=== PATIENT | male | born 1945 | race Caucasian/White ===

== ENCOUNTER 2019-02-20 10:26 | Inpatient (IN) | payer MEDICARE ==
[~2019-02-20 10:26] MED LIST: Buffered Lidocaine 1% SYRIN* 1 ML/SYRINGE INTRADERM ONE; Famotidine IV* 10 MG/ML 2 ML (20 mg) IV ONE; Famotidine IV* 10 MG/ML 2 ML (20 mg) ONE; Lactated Ringers 1000 ML Bag* 1,000 ML IV SCH; Lidocaine 1% MPF ** 5 ML VIAL ONE; ROPIVACAINE 5 MG/ML 30 ML BTL (0.5%) ONE; Tranexamic Acid 1,000 MG in NS 0.9% 50 ML* (outpatient use) IV SCH; ceFAZolin 2 GM PREMIX in ORs 2 GM/50 ML BAG ONE
--- OUTSIDE RECORDS SUMMARY | 2019-02-20 10:31 | XMS REPORT | Continuity of Care Document ---
:1945 External Reference #:[id number] Author Name Tootie Haynes, [facility] Address [address] [place] [address] Problems Active Problems Provider Date Disorder of bursa of shoulder region Onset: 09/06/2000 Cervical spondylosis without myelopathy Onset: 09/06/2000 Obstructive sleep apnea syndrome Louie Jones MD Onset: 02/06/2011 Social History Type Date Description Comments Sex Unknown Tobacco Use Start: Unknown Never Smoked Cigarettes Tobacco Use Start: Unknown Never Smoked Cigars Tobacco Use Start: Unknown Never Smoked A Pipe Smokeless Tobacco Never Used Smokeless Tobacco ETOH Use Denies alcohol use Allergies, Adverse Reactions, Alerts Description No Known Drug Allergies Medications Active Medications SIG Qnty Indications Ordering Provider Date Gabapentin 1 by mouth 90caps M25.511 Guera Castro, 09/15/2016 300mg Capsules three times a M.D. day Lisinopril/Hydrochloro 1 Tab PO bid Unknown thiazide 20-12.5 Tablets Metformin HCL ER 1 Tab PO Q Day Unknown 500mg Tablets ER 24HR Amlodipine Besylate 1 po qd Unknown 5mg Tablets Atorvastatin Calcium Unknown 10mg Tablets Aspirin 81 Low Dose Unknown 81mg Chewtabs Ozempic (0.25 Or 0.5 0.5 mg sq once Unknown MG/Dose) a week 2mg/1.5ML Solution Pen-Inject Medications Administered in Office Medication SIG Qnty Indications Ordering Provider Date Supartz/Hyalgan, Per Dose Yelitza Rock [facility] 02/21/2008 (Not Synvisc) Injection Supartz/Hyalgan, Per Dose John Lombardo M.D. 02/14/2008 (Not Synvisc) Injection Supartz/Hyalgan, Per Dose Yelitza Rogers Jasonyuebrandon, [facility] 02/07/2008 (Not Synvisc) Injection Supartz/Hyalgan, Per Dose Yelitza Rogers Pranav, [facility] 01/29/2008 (Not Synvisc) Injection Supartz/Hyalgan, Per Dose Lilibeth Avendano M.D. 01/22/2008 (Not Synvisc) Injection Immunizations Description No Information Available Vital Signs Date Vital Result Comment 02/07/2019 1:06pm Weight 246.25 lb Weight 111.699 kg BMI (Body Mass Index) 40.4 kg/m2 BP Systolic 132 mmHg BP Diastolic 68 mmHg Heart Rate 116 /min Height 65.50 inches 5'5.50" Height in cm's 166.4 cm O2 % BldC Oximetry 98 % 03/06/2018 10:28am Weight 278.25 lb Weight 126.214 kg BMI (Body Mass Index) 45.6 kg/m2 BP Systolic 120 mmHg BP Diastolic 60 mmHg Heart Rate 100 /min Respiratory Rate 12 /min Height 65.50 inches 5'5.50" Height in cm's 166.4 cm O2 % BldC Oximetry 94 % Results Description No Information Available Procedures Description No Information Available Medical Devices Description No Information Available Encounters Type Date Location Provider Dx Diagnosis Office Visit 02/07/2019 [facility] Tootie Haynes, G47.33 Obstructive sleep 1:00p & Sleep [facility] 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
--- OUTSIDE RECORDS SUMMARY | 2019-02-20 10:31 | XMS REPORT | Continuity of Care Document ---
:1945 External Reference #:[id number] Author Name Sarah Mohamud M.D. 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 Onset: 01/20/2019 Social History Type Date Description Comments Sex Unknown ETOH Use Denies alcohol use Tobacco Use Start: Unknown Patient has never smoked Smoking Status Reviewed: 01/20/19 Patient has never smoked Exercise Type/Frequency Does not exercise Allergies, Adverse Reactions, Alerts Description No Known Drug Allergies Medications Active Medications SIG Qnty Indications Ordering Provider Date Atorvastatin Calcium Farzaneh Daniel MD 20mg Tablets Lisinopril-Hydrochlorothiazid Farzaneh Daniel MD e 20-25mg Tablets Amlodipine Besylate Farzaneh Daniel MD 5mg Tablets Ozempic Farzaneh Daniel MD 0.25or 0.5 mg/Dose Solution Pen-Inject Metformin HCL ER Farzaneh Daniel MD 500mg Tablets ER 24HR Immunizations Description No Information Available Vital Signs Date Vital Result Comment 01/20/2019 3:44pm Height 66 inches 5'6" Weight 246.00 lb Heart Rate 130 /min BP Systolic 130 mmHg BP Diastolic 68 mmHg Body Temperature 98.9 F Pain Level 9 BMI (Body Mass Index) 39.7 kg/m2 Results Description No Information Available Procedures Description No Information Available Medical Devices Description No Information Available Encounters Description No Information Available Assessments Date Code Description Provider 01/20/2019 M25.561 Pain in right knee Sarah Mohamud M.D. 01/20/2019 M25.562 Pain in left knee Sarah Mohamud M.D. 01/20/2019 M25.462 Effusion, left knee Sarah Mohamud M.D. 01/20/2019 M25.461 Effusion, right knee Sarah Mohamud M.D. 01/20/2019 M17.0 Bilateral primary osteoarthritis of knee Sarah Mohamud M.D. Plan of Treatment Future Appointment(s):02/10/2019 11:15 [facility] Sarah Mohamud M.D.M25.561 Pain in right kneeNew Xrays:Knees Bilateral, Ordered: 01/20/19Follow up:Follow up: 7-10 days before ofziuonY40.562 Pain in left kneeNew Xrays:Knees Bilateral, Ordered: M25.462 Effusion, left kneeM25.461 Effusion, right kneeM17.0 Bilateral primary osteoarthritis of knee Functional Status Description No Information Available Mental Status Description No Information Available Referrals Description No Information Available
--- OUTSIDE RECORDS SUMMARY | 2019-02-20 10:31 | XMS REPORT | Continuity of Care Document ---
:1945 External Reference #:[id number] Author Name Sarah Mohamud M.D. 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 Onset: 01/20/2019 Social History Type Date Description Comments Sex Unknown ETOH Use Denies alcohol use Tobacco Use Start: Unknown Patient has never smoked Smoking Status Reviewed: 02/10/19 Patient has never smoked Exercise Type/Frequency Does [...] Available Vital Signs Date Vital Result Comment 02/10/2019 11:55am Height 66 inches 5'6" Weight 243.00 lb Heart Rate 128 /min BP Systolic 138 mmHg BP Diastolic 84 mmHg Body Temperature 99.0 F Pain Level 6 BMI (Body Mass Index) 39.2 kg/m2 01/20/2019 3:44pm Height 66 inches 5'6" Weight 246.00 lb Heart Rate 130 /min BP Systolic 130 mmHg BP Diastolic 68 mmHg Body Temperature 98.9 F Pain Level 9 BMI (Body Mass Index) 39.7 kg/m2 Results Description No Information Available Procedures Description No Information Available Medical Devices Description No Information Available Encounters Type Date Location Provider Dx Diagnosis Office Visit 01/20/2019 [facility] Sarah Mohamud, M25.561 Pain in right 3:00p at [place] M.DGerardo knee M25.562 Pain in left knee M25.462 Effusion, left knee M25.461 Effusion, right knee M17.0 Bilateral primary osteoarthritis of knee Assessments Date Code Description Provider 01/20/2019 M25.561 Pain in right knee Sarah Mohamud M.D. 01/20/2019 M25.562 Pain in left knee Sarah Mohamud M.D. 01/20/2019 M25.462 Effusion, left knee Sarah Mohamud M.D. 01/20/2019 M25.461 Effusion, right knee Sarah Mohamud M.D. 01/20/2019 M17.0 Bilateral primary osteoarthritis of knee Sarah Mohamud M.D. Plan of Treatment Future Appointment(s):03/03/2019 3:30 pm - Sarah Mohamud M.D. at [facility]02/20/2019 11:30 am - Wilbur Munoz PA-C at [facility]02/20/2019 11:30 am - VINI Monzon at [facility]02/20/2019 11:30 am - Sarah Mohamud M.D. at [facility] Functional Status Description No Information Available Mental Status Description No Information Available Referrals Description No Information Available
--- OUTSIDE RECORDS SUMMARY | 2019-02-20 10:31 | XMS REPORT | Continuity of Care Document ---
:1945 External Reference #:[id number] Author Name Farzaneh Daniel MD Address [address] [place] [address] Problems Active Problems Provider Date Type 2 diabetes mellitus Onset: 11/06/2007 Pure hypercholesterolemia Onset: 11/06/2007 Mixed hyperlipidemia Farzaneh Daniel MD Onset: 05/18/2010 Benign essential hypertension Farzaneh Daniel MD Onset: 05/18/2010 Obstructive sleep apnea syndrome Farzaneh Daniel MD Onset: 03/17/2013 Essential hypertension Farzaneh Daniel MD Onset: 04/27/2015 Social History Type Date Description Comments Sex Unknown Tobacco Use Start: Unknown Never Smoked Cigarettes ETOH Use Denies alcohol use Tobacco Use Start: Unknown Patient has never smoked Smoking Status Reviewed: 01/17/19 Patient has never smoked Allergies, Adverse Reactions, Alerts Description No Known Drug Allergies Medications Active Medications SIG Qnty Indications Ordering Date Provider Atorvastatin Calcium 1 by mouth every 30tabs E78.2 Farzaneh Daniel 2018 day MD [place] 20mg Tablets Ozempic 0.5 sc every week 1.500ml E11.9 Farzaneh Daniel 08/20/2018 0.25or 0.Jossy Chakraborty MD mg/Dose Solution Pen-Inject Lisinopril-Hydrochlor 1/2 by mouth 90tabs I10 María Farzaneh 08/20/2018 othiazide every day MD [facility] 20-25mg Tablets Amlodipine Besylate 1 by mouth every 90tabs I10 Farzaneh Daniel 2018 5mg day MD [place] Tablets Fluticasone 2p bilat nares 9.900ml H68.002 María Farzaneh 04/30/2018 Propionate Nasal every day-norma Chakraborty MD [place] sample 50mcg/Act Suspension Shingrix 2 shot series 2units Farzaneh Daniel 12/18/2017 50mcg MD [facility] Suspension Rec Duloxetine HCL 1 by mouth twice 60caps M17.0 [facility] 11/06/2017 60mg a day MD Maury Chakraborty DR Aspirin Enteric 1 by mouth every E78.2 [facility] 03/06/2017 Coated Adult Low day MD [facility] Strength 81mg Tablets DR Knee Sleeve/Open large dx: bilat 2units M17.0 [facility] 12/14/2015 Patella/Medium/Neopre OA MD Palmer ne Misc Coenzyme Q-10 2 by mouth every E78.2 [facility] 10/22/2015 100mg day MD [facility] Capsules Freestyle Lite Test for fsbg's bid 1Box E11.9 [facility] 03/05/2012 Strips MD Palmer Lancets for fsbg's 1Box E11.9 [facility] 03/05/2012 MD [facility] Vitamin D3 1 po qd E55.9 [facility] 10/08/2009 2000Unit MD Palmer Capsules Cpap heated pressure G47.33 [facility] 07/31/2007 10CM MD Palmer dx: beth Metformin HCL ER take two tablets 360tabs E11.9 [facility] 2006 500mg by mouth ghanshyam Chakraborty MD Tablets ER 24HR History Medications Duloxetine HCL 1 by mouth every 7caps [facility] 08/23/2018 - 30mg day x 1 week MD Palmer 10/04/2018 Maury Rosado Medications Administered in Office Medication SIG Qnty Indications Ordering Provider Date Depo Medrol 80 MG Farzaneh Daniel MD 01/04/2016 Injection Immunizations CPT Code Status Date Vaccine Lot # [id number] Given 02/19/2018 Influenza Vac, Quadrivalent, Split, 0.5mL Dosage, [id number] Im Use 22709 Given 03/06/2017 Influenza Vac, Quadrivalent, Split, 0.5mL Dosage, [id number] Im Use 68562 Given 03/06/2016 Influenza Vac, Quadrivalent, Split, 0.5mL Dosage, [id number] Im Use 77218 Given 01/04/2016 Tdap (Adacel) Ages 7 And Above Only [id number] 23769 Given 04/27/2015 Influenza Vac, Quadrivalent, Split, 0.5mL Dosage, [id number] Im Use 97878 Given 08/04/2014 Prevnar 13 Pneumococal Conjugate Vaccine [id number] Q2038 Given 03/16/2014 Fluzone Trivalent Immunization [id number] Q2038 Given 03/17/2013 Fluzone Trivalent Immunization [id number] Given 06/12/2012 Pneumococcal 23 Immunization Adult Or [id number] Immunosuppressed Patient Vital Signs Date Vital Result Comment 01/17/2019 10:18am Weight 245.00 lb Heart Rate 120 /min BP Systolic 134 mmHg BP Diastolic 80 mmHg Height 66.5 inches 5'6.50" BMI (Body Mass Index) 38.9 kg/m2 11/04/2018 8:45am Weight 248.00 lb Heart Rate 96 /min BP Systolic 120 mmHg BP Diastolic 66 mmHg Height 66.5 inches 5'6.50" BMI (Body Mass Index) 39.4 kg/m2 Results Test Date Facility Test Result H/L Range Note Laboratory test 01/17/2019 [facility] Hemoglobin A1c <pending> finding Laboratory test 01/17/2019 [facility] Vit D 25Oh <pending> finding Basic (BMP) 11/04/2018 [facility] Sodium 139 mmol/L 135-146 1, 2 Potassium 4.1 mmol/L 3.5-5.2 Chloride# 96 mmol/L Low 97-110 3 Carbon Dioxide 31 mmol/L 24-34 Glucose 129 mg/dL High 70-105 BUN 17 mg/dL 6-26 Creatinine 1.1 mg/dL 0.5-1.4 Calcium 9.9 mg/dL 8.5-10.5 4 Female Egfr 51 Low >60 5 Male Egfr 68 >60 6 Anion Gap 12 mmol/L 5-15 7 CBC with Auto Diff-fcmg 11/04/2018 [facility] WBC 7.7 K/uL 4.1-11.0 RBC 4.77 M/uL 4.60-6.10 Hemoglobin 15.2 gm/dL 13.5-18.0 Hematocrit 45.7 % 41.0-53.0 MCV 95.8 fL 80.0-97.0 MCH 31.9 pg 27.0-32.0 MCHC 33.3 g/dL 32.0-36.0 RDW 14.4 % 11.5-14.5 PLT Count 313 K/ul 140-400 MPV 8.4 FL 7.1-10.7 Neutrophil 60.4 % 35.0-75.0 Lymphocyte 24.9 % 16.0-52.0 Monocyte 10.6 % High 2.0-10.0 Eosinophil 3.3 % 0.0-5.0 Basophil 0.8 % 0.0-4.0 Abs Neutrophils 4.7 K/uL 2.1-8.0 Abs Lymphocytes 1.9 K/uL 0.8-5.5 Abs Monocytes 0.8 K/uL 0.1-1.0 Abs Eosinophils 0.3 K/uL 0.0-0.5 Abs Basophils 0.1 K/uL 0.0-0.3 [facility] 6.8 % High 4.1-5.9 Estimated Average Glucose Calc 148 mg/dL High 71-140 Laboratory test finding 11/04/2018 [facility] TSH 3.04 uIU/mL 0.35-4.94 CMB Reflex 10/04/2018 [facility] CKMB 2.8 ng/mL (0.0-5.0) [phone] CKMB Relative Index 1.6 {index_val} (0.0-4.0) CKMB Panel-RL 10/04/2018 [facility] CK 174 U/L (39-308) 8 Lipid Treatment 10/04/2018 [facility] Cholesterol 200 mg/dL High 50-199 9 Triglycerides 146 mg/dL 30-200 HDL 45 mg/dL 29-71 10 Chol/ HDL Ratio 4.5 ratio 4.0-6.7 VLDL 29 mg/dL 2-29 LDL (Calc) 126 mg/dL High 20-99 11 Alt 49 U/L High 3-42 Ast 42 U/L 8-42 Hemoglobin A1c 10/04/2018 [facility] Hemoglobin A1c 6.8 % High 4.1-5.9 Estimated Average Glucose Calc 148 mg/dL High 71-140 Basic (BMP) 10/04/2018 [facility] Sodium 141 mmol/L 135-146 12 Potassium 4.9 mmol/L 3.5-5.2 Chloride# 96 mmol/L Low 97-110 13 Carbon Dioxide 28 mmol/L 24-34 Glucose 104 mg/dL 70-105 BUN 16 mg/dL 6-26 Creatinine 1.0 mg/dL 0.5-1.4 Calcium 10.4 mg/dL 8.5-10.5 14 Female Egfr 60 Low >60 15 Male Egfr 80 >60 16 Anion Gap 17 mmol/L High 5-15 17 Laboratory test finding 10/04/2018 [facility] CPK 149 U/L 12-199 Laboratory test finding 10/04/2018 [facility] D-Dimer,Sensitiv 0.94 mg/L High (<0.50) 18 e CBC with Auto Diff-fcmg 08/20/2018 [facility] WBC 9.0 K/uL 4.1-11.0 19 RBC 4.78 M/uL 4.60-6.10 Hemoglobin 15.5 gm/dL 13.5-18.0 Hematocrit 45.9 % 41.0-53.0 MCV 96.0 fL 80.0-97.0 MCH 32.3 pg High 27.0-32.0 MCHC 33.6 g/dL 32.0-36.0 RDW 13.7 % 11.5-14.5 PLT Count 296 K/ul 140-400 MPV 8.2 FL 7.1-10.7 Neutrophil 64.3 % 35.0-75.0 Lymphocyte 22.4 % 16.0-52.0 Monocyte 10.1 % High 2.0-10.0 Eosinophil 2.4 % 0.0-5.0 Basophil 0.8 % 0.0-4.0 Abs Neutrophils 5.8 K/uL 2.1-8.0 Abs Lymphocytes 2.0 K/uL 0.8-5.5 Abs Monocytes 0.9 K/uL 0.1-1.0 Abs Eosinophils 0.2 K/uL 0.0-0.5 Abs Basophils 0.1 K/uL 0.0-0.3 Comprehensive Met Panel-[facility] 08/20/2018 [facility] Sodium 142 mmol/L 135- 146 20 Potassium 4.4 mmol/L 3.5-5.2 Chloride# 101 mmol/L 97-110 21 Carbon Dioxide 31 mmol/L 24-34 Glucose 114 mg/dL High 70-105 BUN 15 mg/dL 6-26 Creatinine 0.8 mg/dL 0.5-1.4 Calcium 9.9 mg/dL 8.5-10.2 Total Protein 7.2 g/dL 6.0-8.0 Albumin 4.3 g/dL 3.6-4.9 Globulin 2.9 g/dL 2.0-3.5 A/G Ratio 1.5 Ratio 1.0-2.2 Total Bilirubin 0.9 mg/dL 0.1-1.3 Alkaline Phosphatase 80 U/L 24-140 Alt 71 U/L High 3-42 Ast 55 U/L High 8-42 Anion Gap 10 mmol/L 5-15 22 Vicky Egfr >60 >60 23 Non Vicky Egfr >60 >60 24 Lipid 08/20/2018 [facility] Cholesterol 177 mg/dL 50-199 Triglycerides 215 mg/dL High 30-200 HDL 32 mg/dL 29-71 25 Chol/ HDL Ratio 5.6 ratio 4.0-6.7 VLDL 43 mg/dL High 2-29 LDL (Calc) 102 mg/dL High 20-99 26 Hemoglobin A1c 08/20/2018 [facility] Hemoglobin A1c 6.1 % High 4.1-5.9 Estimated Average Glucose Calc 128 mg/dL 71-140 Laboratory test finding 08/20/2018 [facility] Vitamin D 25 Hydroxy 52 ng/mL 30-100 27 NT Pro BNP 69 pg/mL (0-125) 28 Laboratory test 08/20/2018 [facility] D-Dimer,Sensitive 1.55 mg/L High (< 0.50) 29 finding 1 This sample is drawn by:[facility]. 2 Updated reference range on new analyzer 3 Updated reference range on new analyzer 4 Updated reference range 09-11-2018 5 Concerning GFR Guidelines for Americans: Normal function or mild renal disease, if clinically at risk: >/= 60 mL/min Moderately decreased: 30-59 Severely decreased: 15-29 Renal failure: <15 There is reduced accuracy above 60ml/min/1.73 m squared, but the numeric value may be clinically useful in the near 60 range 6 Concerning GFR Guidelines: Normal function or mild renal disease, if clinically at risk: >/= 60 mL/min Moderately decreased: 30-59 Severely decreased: 15-29 Renal failure: <15 There is reduced accuracy above 60ml/min/1.73 m squared, but the numeric value may be clinically useful in the near 60 range Glomerular Filtration Rate (GFR) is estimated based on the CKD-EPI equation, which assumes a steady state for creatinine as recommended by the National Kidney Disease Education Program in conjunction with the National Institutes of Health and the National Kidney Foundation. Clinical conditions in which it may be necessary to measure GFR by using clearance methods include extremes of age and body size, severe malnutrition or obesity, diseases of skeletal muscle, paraplegia or quadriplegia, vegetarian diet, rapidly changing kidney function, and calculation of the dose of potentially toxic drugs that are excreted by the kidneys. 7 Updated Reference Range 8 Unless otherwise specified, testing performed by [place] [address] 9 Specimen received unspun 10 Per NCEP ATP III Guidelines: Results lower than 40 mg/dL are suggestive of increased risk for coronary artery disease. Results > or = to 60 mg/dL are considered a negative risk factor. 11 Per NCEP ATP III Guidelines: Normal Population <130 Patients with medical conditions: CHD/DM Optimal: <100 Borderline high: 130-159 High: 160-189 Very high: >189 12 Updated reference range on new analyzer 13 Updated reference range on new analyzer 14 Updated reference range 09-11-2018 15 Concerning GFR Guidelines for Americans: Normal function or mild renal disease, if clinically at risk: >/= 60 mL/min Moderately decreased: 30-59 Severely decreased: 15-29 Renal failure: <15 There is reduced accuracy above 60ml/min/1.73 m squared, but the numeric value may be clinically useful in the near 60 range 16 Concerning GFR Guidelines: Normal function or mild renal disease, if clinically at risk: >/= 60 mL/min Moderately decreased: 30-59 Severely decreased: 15-29 Renal failure: <15 There is reduced accuracy above 60ml/min/1.73 m squared, but the numeric value may be clinically useful in the near 60 range Glomerular Filtration Rate (GFR) is estimated based on the CKD-EPI equation, which assumes a steady state for creatinine as recommended by the National Kidney Disease Education Program in conjunction with the National Institutes of Health and the National Kidney Foundation. Clinical conditions in which it may be necessary to measure GFR by using clearance methods include extremes of age and body size, severe malnutrition or obesity, diseases of skeletal muscle, paraplegia or quadriplegia, vegetarian diet, rapidly changing kidney function, and calculation of the dose of potentially toxic drugs that are excreted by the kidneys. 17 Updated Reference Range 18 Unless otherwise specified, testing performed [place] [address] 19 This sample is drawn by:[facility]. 20 Updated reference range on new analyzer 21 Updated reference range on new analyzer 22 Updated Reference Range 23 Concerning GFR Guidelines for Americans: Normal function or mild renal disease, if clinically at risk: >/= 60 mL/min Moderately decreased: 30-59 Severely decreased: 15-29 Renal failure: <15 24 Concerning GFR Guidelines: Normal function or mild renal disease, if clinically at risk: >/= 60 mL/min Moderately decreased: 30-59 Severely decreased: 15-29 Renal failure: <15 Glomerular Filtration Rate (GFR) is estimated based on the MDRD equation, which assumes a steady state for creatinine as recommended by the National Kidney Disease Education Program in conjunction with the National Institutes of Health and the National Kidney Foundation. Clinical conditions in which it may be necessary to measure GFR by using clearance methods include extremes of age and body size, severe malnutrition or obesity, diseases of skeletal muscle, paraplegia or quadriplegia, vegetarian diet, rapidly changing kidney function, and calculation of the dose of potentially toxic drugs that are excreted by the kidneys. 25 Per NCEP ATP III Guidelines: Results lower than 40 mg/dL are suggestive of increased risk for coronary artery disease. Results > or = to 60 mg/dL are considered a negative risk factor. 26 Per NCEP ATP III Guidelines: Normal Population <130 Patients with medical conditions: CHD/DM Optimal: <100 Borderline high: 130-159 High: 160-189 Very high: >189 27 Clinical Guidelines for recommended serum 25(OH)Vitamin D Deficient at less than 20 ng/mL Insufficient at 20 to <30 ng/mL Sufficient at 30-100 ng/mL Toxicity at greater than 100 ng/mL 28 Unless otherwise specified, testing [place] [address] 29 Unless otherwise specified, testing performed [place] [address] Procedures Date Code Description Status 10/04/2018 35425 Measure Blood Oxygen Level Single Determination Completed 08/20/2018 56706 Electrocardiogram Complete Completed Medical Devices Description No Information Available Encounters Type Date Location Provider Dx Diagnosis Office Visit 11/04/2018 Farzaneh Sanchez E66.9 Obesity, unspecified 8:45a MD Palmer E11.9 Type 2 diabetes mellitus without complications I10 Essential (primary) hypertension R42 Dizziness and giddiness M17.0 Bilateral primary osteoarthritis of knee E78.2 Mixed hyperlipidemia F43.21 Adjustment disorder with depressed mood I65.23 Occlusion and stenosis of bilateral carotid arteries R06.02 Shortness of breath Z68.39 Body mass index (BMI) 39.0-39.9, adult Office Visit 10/04/2018 10:15a Farzaneh Sanchez E66.01 Morbid ( severe) MD Palmer obesity due to excess calories E11.9 Type 2 diabetes mellitus without complications I10 Essential (primary) hypertension I63.89 Other cerebral infarction R42 Dizziness and giddiness M17.0 Bilateral primary osteoarthritis of knee R60.0 Localized edema R06.02 Shortness of breath Z68.41 Body mass index (BMI) 40.0-44.9, adult Office Visit 08/20/2018 10:45a Farzaneh Sanchez E66.01 Morbid ( severe) MD Palmer obesity due to excess calories E11.9 Type 2 diabetes mellitus without complications R19.7 Diarrhea, unspecified I63.89 Other cerebral infarction I10 Essential (primary) hypertension G47.33 Obstructive sleep apnea (adult) (pediatric) E78.2 Mixed hyperlipidemia M48.07 Spinal stenosis, lumbosacral region M17.0 Bilateral primary osteoarthritis of knee F43.21 Adjustment disorder with depressed mood R60.0 Localized edema E55.9 Vitamin D deficiency, unspecified Z68.41 Body mass index (BMI) 40.0-44.9, adult Assessments Date Code Description Provider 01/17/2019 E66.9 Obesity, unspecified Farzaneh Daniel MD 01/17/2019 E11.9 Type 2 diabetes mellitus without Farzaneh Daniel MD complications 01/17/2019 I10 Essential (primary) hypertension Farzaneh Daniel MD 01/17/2019 M17.0 Bilateral primary osteoarthritis of knee Farzaneh Daniel MD 01/17/2019 E78.2 Mixed hyperlipidemia Farzaneh Daniel MD 01/17/2019 F43.21 Adjustment disorder with depressed mood Farzaneh Daniel MD 01/17/2019 M48.07 Spinal stenosis, lumbosacral region Farzaneh Daniel MD 01/17/2019 E55.9 Vitamin D deficiency, unspecified Farzaneh Daniel MD 01/17/2019 Z68.38 Body mass index (BMI) 38.0-38.9, adult Farzaneh Daniel MD 11/04/2018 E66.9 Obesity, unspecified Farzaneh Daniel MD 11/04/2018 E11.9 Type 2 diabetes mellitus without Farzaneh Daniel MD complications 11/04/2018 I10 Essential (primary) hypertension Farzaneh Daniel MD 11/04/2018 R42 Dizziness and giddiness Farzaenh Daniel MD 11/04/2018 M17.0 Bilateral primary osteoarthritis of knee Farzaneh Daniel MD 11/04/2018 E78.2 Mixed hyperlipidemia Farzaneh Daniel MD 11/04/2018 F43.21 Adjustment disorder with depressed mood Farzaneh Daniel MD 11/04/2018 I65.23 Occlusion and stenosis of bilateral carotid Farzaneh Daniel MD arteries 11/04/2018 R06.02 Shortness of breath Farzaneh Daniel MD 11/04/2018 Z68.39 Body mass index (BMI) 39.0-39.9, adult Farzaneh Daniel MD 11/04/2018 E11.9 Type 2 diabetes mellitus without [facility] complications 10/04/2018 E66.01 Morbid (severe) obesity due to excess Farzaneh Daniel MD calories 10/04/2018 E11.9 Type 2 diabetes mellitus without [facility] complications 10/04/2018 E11.9 Type 2 diabetes mellitus without Farzaneh Daniel MD complications 10/04/2018 I10 Essential (primary) hypertension Farzaneh Daniel MD 10/04/2018 I63.89 Other cerebral infarction Farzaneh Daniel MD 10/04/2018 R42 Dizziness and giddiness Farzaneh Daniel MD 10/04/2018 M17.0 Bilateral primary osteoarthritis of knee Farzaneh Daniel MD 10/04/2018 R60.0 Localized edema Farzaneh Daniel MD 10/04/2018 R06.02 Shortness of breath Farzaneh Daniel MD 10/04/2018 Z68.41 Body mass index (BMI) 40.0-44.9, adult Farzaneh Daniel MD 10/04/2018 R06.02 Shortness of breath [facility] 08/20/2018 E66.01 Morbid (severe) obesity due to excess Farzaneh Daniel MD calories 08/20/2018 E55.9 Vitamin D deficiency, unspecified [facility] 08/20/2018 E11.9 Type 2 diabetes mellitus without Farzaneh Daniel MD complications 08/20/2018 R19.7 Diarrhea, unspecified Farzaneh Daniel MD 08/20/2018 I63.89 Other cerebral infarction Farzaneh Daniel MD 08/20/2018 I10 Essential (primary) hypertension Farzaneh Daniel MD 08/20/2018 G47.33 Obstructive sleep apnea (adult) (pediatric) Farzaneh Daniel MD 08/20/2018 E78.2 Mixed hyperlipidemia Farzaneh Daniel MD 08/20/2018 M48.07 Spinal stenosis, lumbosacral region Farzaneh Daniel MD 08/20/2018 M17.0 Bilateral primary osteoarthritis of knee Farzaneh Daniel MD 08/20/2018 F43.21 Adjustment disorder with depressed mood Farzaneh Daniel MD 08/20/2018 R60.0 Localized edema Farzaneh Daniel MD 08/20/2018 E55.9 Vitamin D deficiency, unspecified Farzaneh Daniel MD 08/20/2018 Z68.41 Body mass index (BMI) 40.0-44.9, adult Farzaneh Daniel MD 08/20/2018 E11.9 Type 2 diabetes mellitus without [facility] complications Plan of Treatment Future Appointment(s):05/05/2019 10:00 am - Farzaneh Daniel MD at [id number] - Farzaneh Daniel MDE66.9 Obesity, wzsmyhpecdoH05.9 Type 2 diabetes mellitus without complicationsFollow up:3 mos as AWV/EV/PEI10 Essential ( primary) vcuugziarmsbY06.0 Bilateral primary osteoarthritis of kneeE78.2 Mixed ijnlsyhbootuapP55.21 Adjustment disorder with depressed moodM48.07 Spinal stenosis, lumbosacral wnlqodF01.9 Vitamin D deficiency, ebluhybxsmgX00.38 Body mass index (BMI) 38.0-38.9, adult Functional Status Description No Information Available Mental Status Description No Information Available Referrals Refer to Reason for Referral Status Appt Date Sarah Mohamud DR BILATERAL KNEE PAIN 01/01-SCHEDULED WITH [facility]. Scheduled 01/20/2019 [facility] ADVISING AND [place] [phone]
--- OUTSIDE RECORDS SUMMARY | 2019-02-20 10:31 | XMS REPORT | Continuity of Care Document ---
:1945 External Reference #:[id number] Author Name Dolores Santos Problems Active Problems Provider Date Type 2 [...] Patient has never smoked Smoking Status Reviewed: 02/04/19 Patient has never smoked Allergies, Adverse Reactions, Alerts Description No Known Drug Allergies Medications Active Medications SIG Qnty Indications Ordering Date Provider Atorvastatin Calcium 1 by mouth every 30tabs E78.2 [facility] 2018 day MD Vivian 20mg Tablets Ozempic 0.5 sc every week 1.500ml E11.9 [facility] 08/20/2018 0.25or 0Frankie Chakraborty MD mg/Dose Solution Pen-Inject Lisinopril-Hydrochlor 1/2 by mouth 90tabs I10 [facility] 08/20/2018 othiazide every day MD Vivian 20-25mg Tablets Amlodipine Besylate 1 by mouth every 90tabs [facility] 5mg day MD Vivian Tablets Fluticasone 2p bilat nares 9.900ml H68.002 [facility] 04/30/2018 Propionate Nasal every day-gave MD Vivian [place] sample 50mcg/Act Suspension Shingrix 2 shot series 2units [facility] 12/18/2017 50mcdelfino Chakraborty MD Suspension Rec Duloxetine HCL 1 by mouth twice 60caps M17.0 [facility] 11/06/2017 60mg a day MD Vivian Caps DR Rosado Aspirin Enteric 1 by mouth every E78.2 [facility] 03/06/2017 Coated Adult Low day MD Vivian Strength 81mg Tablets Knee Sleeeliazar/Open large dx: bilat 2units M17.0 [facility] 12/14/2015 Patella/Medium/Neopre OA MD Vivian ne Misc Coenzyme Q-10 2 by mouth every E78.2 [facility] 10/22/2015 100mg day MD Vivian Capsules Freestyle Lite Test for fsbg's bid 1Box E11.9 [facility] 03/05/2012 Strips MD Vivian Lancets for fsbg's 1Box E11.9 [facility] 03/05/2012 MD Vivian Vitamin D3 1 po qd E55.9 [facility] 10/08/2009 2000Unit MD Vivian Capsules Cpap heated pressure G47.33 [facility] 07/31/2007 10CM MD Vivian dx: beth Metformin HCL ER take two tablets 360tabs E11.9 [facility] 2006 500mg by mouth qavivian Chakraborty MD Tablets ER 24HR History Medications Duloxetine HCL 1 by mouth every 7caps [facility] 08/23/2018 - 30mg day x 1 week MD Vivian 10/04/[address] Rosado Medications Administered in Office Medication SIG Qnty Indications Ordering Provider Date Depo Medrol 80 MG Farzaneh Daniel MD 01/04/2016 Injection Immunizations CPT Code Status Date Vaccine Lot # [id number] Given 02/19/2018 Influenza Vac, Quadrivalent, Split, 0.5mL Dosage, [id number] Im Use 80823 Given 03/06/2017 Influenza Vac, Quadrivalent, Split, 0.5mL Dosage, [id number] Im Use 36797 Given 03/06/2016 Influenza Vac, Quadrivalent, Split, 0.5mL Dosage, [id number] Im Use 14854 Given 01/04/2016 Tdap (Adacel) Ages 7 And Above Only [id number] 61106 Given 04/27/2015 Influenza Vac, Quadrivalent, Split, 0.5mL Dosage, [id number] Im Use 29660 Given 08/04/2014 Prevnar 13 Pneumococal Conjugate Vaccine [id number] Q2038 Given 03/16/2014 Fluzone Trivalent Immunization [id number] Q2038 Given 03/17/2013 Fluzone Trivalent Immunization 92141 Given 06/12/2012 Pneumococcal 23 Immunization Adult Or [id number] Immunosuppressed Patient Vital Signs Date Vital Result Comment 02/04/2019 11:31am Weight 245.00 lb Heart Rate 76 /min BP Systolic 120 mmHg BP Diastolic 76 mmHg Height 66.5 inches 5'6.50" BMI (Body Mass Index) 38.9 kg/m2 01/17/2019 10:18am Weight 245.00 lb Heart Rate 120 /min BP Systolic 134 mmHg BP Diastolic 80 mmHg Height 66.5 inches 5'6.50" BMI (Body Mass Index) 38.9 kg/m2 Results Test Date Facility Test Result H/L Range Note Basic (BMP) 02/04/2019 [facility] Sodium 138 mmol/L 135-146 1, 2 Potassium 4.4 mmol/L 3.5-5.2 Chloride# 95 mmol/L Low 97-110 3 Carbon Dioxide 26 mmol/L 24-34 Glucose 98 mg/dL 70-105 BUN 17 mg/dL 6-26 Creatinine 0.9 mg/dL 0.5-1.4 Calcium 10.0 mg/dL 8.5-10.5 4 Female Egfr 61 >60 5 Male Egfr 81 >60 6 Anion Gap 17 mmol/L High 5-15 7 CBC with Auto Diff-fcmg 02/04/2019 [facility] WBC 8.7 K/uL 4.1-11.0 RBC 4.64 M/uL 4.60-6.10 Hemoglobin 15.3 gm/dL 13.5-18.0 Hematocrit 45.3 % 41.0-53.0 MCV 97.5 fL High 80.0-97.0 MCH 32.9 pg High 27.0-32.0 MCHC 33.7 g/dL 32.0-36.0 RDW 13.4 % 11.5-14.5 PLT Count 309 K/ul 140-400 MPV 8.8 FL 7.1-10.7 Neutrophil 64.4 % 35.0-75.0 Lymphocyte 21.6 % 16.0-52.0 Monocyte 9.7 % 2.0-10.0 Eosinophil 3.4 % 0.0-5.0 Basophil 0.9 % 0.0-4.0 Abs Neutrophils 5.6 K/uL 2.1-8.0 Abs Lymphocytes 1.9 K/uL 0.8-5.5 Abs Monocytes 0.8 K/uL 0.1-1.0 Abs Eosinophils 0.3 K/uL 0.0-0.5 Abs Basophils 0.1 K/uL 0.0-0.3 Basic (BMP) 01/17/2019 [facility] Sodium 138 mmol/L 135-146 8, 9 Potassium 5.3 mmol/L High 3.5-5.2 Chloride# 96 mmol/L Low 97-110 10 Carbon Dioxide 29 mmol/L 24-34 Glucose 119 mg/dL High 70-105 BUN 14 mg/dL 6-26 Creatinine 1.0 mg/dL 0.5-1.4 Calcium 10.0 mg/dL 8.5-10.5 11 Female Egfr 60 Low >60 12 Male Egfr 80 >60 13 Anion Gap 13 mmol/L 5-15 14 Hemoglobin A1c 01/17/2019 [facility] Hemoglobin A1c 6.3 % High 4.1-5.9 Estimated Average Glucose Calc 134 mg/dL 71-140 Lipid Treatment 01/17/2019 [facility] Cholesterol 128 mg/dL 50-199 Triglycerides 112 mg/dL 30-200 HDL 46 mg/dL 29-71 15 Chol/ HDL Ratio 2.8 ratio Low 4.0-6.7 VLDL 22 mg/dL 2-29 LDL (Calc) 60 mg/dL 20-99 16 Alt 36 U/L 3-42 Ast 37 U/L 8-42 Laboratory test finding 01/17/2019 [facility] Vitamin D 25 61 ng/mL 30-100 17 Hydroxy Basic (BMP) 11/04/2018 [facility] Sodium 139 mmol/L 135-146 18 Potassium 4.1 mmol/L 3.5-5.2 Chloride# 96 mmol/L Low 97-110 19 Carbon Dioxide 31 mmol/L 24-34 Glucose 129 mg/dL High 70-105 BUN 17 mg/dL 6-26 Creatinine 1.1 mg/dL 0.5-1.4 Calcium 9.9 mg/dL 8.5-10.5 20 Female Egfr 51 Low >60 21 Male Egfr 68 >60 22 Anion Gap 12 mmol/L 5-15 23 CBC with Auto Diff-fcmg 11/04/2018 [facility] WBC 7.7 K/uL 4.1-11.0 RBC 4.77 M/uL [...] Basophils 0.1 K/uL 0.0-0.3 [facility] 6.8 % High 4.1-5.9 Estimated Average Glucose Calc 148 mg/dL High 71-140 Laboratory test finding [facility]04[facility] 3.04 uIU/mL 0.35-4.94 CMB Reflex 10/04/2018 [facility] CKMB 2.8 ng/mL (0.0-5.0) [phone] CKMB Relative Index 1.6 {index_val} (0.0-4.0) CKMB Panel-RL 10/04/2018 [facility] CK 174 U/L (39-308) 24 Lipid Treatment 10/04/2018 [facility] Cholesterol 200 mg/dL High 50-199 25 Triglycerides 146 mg/dL 30-200 HDL 45 mg/dL 29-71 26 Chol/ HDL Ratio 4.5 ratio 4.0-6.7 VLDL 29 mg/dL 2-29 LDL (Calc) 126 mg/dL High 20-99 27 Alt 49 U/L High 3-42 Ast 42 U/L 8-42 Hemoglobin A1c 10/04/2018 [facility] Hemoglobin A1c 6.8 % High 4.1-5.9 Estimated Average Glucose Calc 148 mg/dL High 71-140 Basic (BMP) 10/04/2018 [facility] Sodium 141 mmol/L 135-146 28 Potassium 4.9 mmol/L 3.5-5.2 Chloride# 96 mmol/L Low 97-110 29 Carbon Dioxide 28 mmol/L 24-34 Glucose 104 mg/dL 70-105 BUN 16 mg/dL 6-26 Creatinine 1.0 mg/dL 0.5-1.4 Calcium 10.4 mg/dL 8.5-10.5 30 Female Egfr 60 Low >60 31 Male Egfr 80 >60 32 Anion Gap 17 mmol/L High 5-15 33 Laboratory test finding 10/04/2018 [facility] CPK 149 U/L 12-199 Laboratory test finding 10/04/2018 [facility] D-Dimer,Sensitiv 0.94 mg/L High (<0.50) 34 e CBC with Auto Diff-fcmg 08/20/2018 [facility] WBC 9.0 K/uL 4.1-11.0 35 RBC 4.78 M/uL 4.60-6.10 Hemoglobin 15.5 gm/dL [...] 0.1 K/uL 0.0-0.3 Comprehensive Met Panel-[facility]G 08/20/2018 [facility] Sodium 142 mmol/L 135- 146 36 Potassium 4.4 mmol/L 3.5-5.2 Chloride# 101 mmol/L 97-110 37 Carbon Dioxide 31 mmol/L 24-34 Glucose 114 [...] High 8-42 Anion Gap 10 mmol/L 5-15 38 Vicky Egfr >60 >60 39 Non Vicky Egfr >60 >60 40 Lipid 08/20/2018 [email or web address] Cholesterol 177 mg/dL 50-199 Triglycerides 215 mg/dL High 30-200 HDL 32 mg/dL 29-71 41 Chol/ HDL Ratio 5.6 ratio 4.0-6.7 VLDL 43 mg/dL High 2-29 LDL (Calc) 102 mg/dL High 20-99 42 Hemoglobin A1c 08/20/2018 [email or web address] Hemoglobin A1c 6.1 % High 4.1-5.9 Estimated Average Glucose Calc 128 mg/dL 71-140 Laboratory test finding 08/20/2018 [email or web address] Vitamin D 25 Hydroxy 52 ng/mL 30-100 43 NT Pro BNP 69 pg/mL (0-125) 44 Laboratory test 08/20/2018 [email or web address] D-Dimer,Sensitive 1.55 mg/L High (< 0.50) 45 finding 1 Specimen received unspun 1 SST 2 Updated reference range on new analyzer [...] the kidneys. 7 Updated Reference Range 8 This sample is drawn by: 9 Updated reference range on new analyzer 10 Updated reference range on new analyzer 11 Updated reference range 09-11-2018 12 Concerning GFR Guidelines for Americans: Normal function or mild renal disease, if clinically at risk: >/= 60 mL/min Moderately decreased: 30-59 Severely decreased: 15-29 Renal failure: <15 There is reduced accuracy above 60ml/min/1.73 m squared, but the numeric value may be clinically useful in the near 60 range 13 Concerning GFR Guidelines: Normal function or mild [...] drugs that are excreted by the kidneys. 14 Updated Reference Range 15 Per NCEP ATP III Guidelines: Results lower than 40 mg/dL are suggestive of increased risk for coronary artery disease. Results > or = to 60 mg/dL are considered a negative risk factor. 16 Per NCEP ATP III Guidelines: Normal Population <130 Patients with medical conditions: CHD/DM Optimal: <100 Borderline high: 130-159 High: 160-189 Very high: >189 17 Clinical Guidelines for recommended serum 25(OH)Vitamin D Deficient at less than 20 ng/mL Insufficient at 20 to <30 ng/mL Sufficient at 30-100 ng/mL Toxicity at greater than 100 ng/mL 18 Updated reference range on new analyzer 19 Updated reference range on new analyzer 20 Updated reference range 09-11-2018 21 Concerning GFR Guidelines for Americans: Normal function or mild renal disease, if clinically at risk: >/= 60 mL/min Moderately decreased: 30-59 Severely decreased: 15-29 Renal failure: <15 There is reduced accuracy above 60ml/min/1.73 m squared, but the numeric value may be clinically useful in the near 60 range 22 Concerning GFR Guidelines: Normal function or mild [...] drugs that are excreted by the kidneys. 23 Updated Reference Range 24 Unless otherwise specified, testing performed by [facility] [address] [place] [id number] 25 Specimen received unspun 26 Per NCEP ATP III Guidelines: Results lower than 40 mg/dL are suggestive of increased risk for coronary artery disease. Results > or = to 60 mg/dL are considered a negative risk factor. 27 Per NCEP ATP III Guidelines: Normal Population <130 Patients with medical conditions: CHD/DM Optimal: <100 Borderline high: 130-159 High: 160-189 Very high: >189 28 Updated reference range on new analyzer 29 Updated reference range on new analyzer 30 Updated reference range 09-11-2018 31 Concerning GFR Guidelines for Americans: Normal function or mild renal disease, if clinically at risk: >/= 60 mL/min Moderately decreased: 30-59 Severely decreased: 15-29 Renal failure: <15 There is reduced accuracy above 60ml/min/1.73 m squared, but the numeric value may be clinically useful in the near 60 range 32 Concerning GFR Guidelines: Normal function or mild [...] drugs that are excreted by the kidneys. 33 Updated Reference Range 34 Unless otherwise specified, testing performed by [facility] [address] [place] [address] 35 This sample is drawn by:[email or web address]. 36 Updated reference range on new analyzer 37 Updated reference range on new analyzer 38 Updated Reference Range 39 Concerning GFR Guidelines for Americans: Normal function or mild renal disease, if clinically at risk: >/= 60 mL/min Moderately decreased: 30-59 Severely decreased: 15-29 Renal failure: <15 40 Concerning GFR Guidelines: Normal function or mild [...] drugs that are excreted by the kidneys. 41 Per NCEP ATP III Guidelines: Results lower than 40 mg/dL are suggestive of increased risk for coronary artery disease. Results > or = to 60 mg/dL are considered a negative risk factor. 42 Per NCEP ATP III Guidelines: Normal Population <130 Patients with medical conditions: CHD/DM Optimal: <100 Borderline high: 130-159 High: 160-189 Very high: >189 43 Clinical Guidelines for recommended serum 25(OH)Vitamin D Deficient at less than 20 ng/mL Insufficient at 20 to <30 ng/mL Sufficient at 30-100 ng/mL Toxicity at greater than 100 ng/mL 44 Unless otherwise specified, testing performed by [facility] [place] [address] 45 Unless otherwise specified, testing performed by [facility] [place] [address] Procedures Date Code Description Status 02/04/2019 69502 Electrocardiogram Complete Completed 10/04/2018 75915 Measure Blood Oxygen Level Single Determination Completed 08/20/2018 52180 Electrocardiogram Complete Completed Medical Devices Description No Information Available Encounters Type Date Location Provider Dx Diagnosis Office Visit 11/04/2018 Farzaneh Sanchez E66.9 Obesity, unspecified 8:45a MD Vivian E11.9 Type 2 diabetes mellitus without complications I10 Essential (primary) hypertension R42 Dizziness and giddiness M17.0 Bilateral primary osteoarthritis of knee E78.2 Mixed hyperlipidemia F43.21 Adjustment disorder with depressed mood I65.23 Occlusion and stenosis of bilateral carotid arteries R06.02 Shortness of breath Z68.39 Body mass index (BMI) 39.0-39.9, adult Office Visit 10/04/2018 10:15a Farzaneh Sanchez E66.01 Morbid ( severe) MD Vivian obesity due to excess calories E11.9 Type 2 diabetes mellitus without complications I10 Essential (primary) hypertension I63.89 Other cerebral infarction R42 Dizziness and giddiness M17.0 Bilateral primary osteoarthritis of knee R60.0 Localized edema R06.02 Shortness of breath Z68.41 Body mass index (BMI) 40.0-44.9, adult Office Visit 08/20/2018 10:45a Jayashree Farzaneh Daniel E66.01 Morbid ( severe) MD Vivian obesity due to excess calories E11.9 Type [...] 40.0-44.9, adult Assessments Date Code Description Provider 02/04/2019 E66.9 Obesity, unspecified Farzaneh Daniel MD 02/04/2019 Z01.818 Encounter for other preprocedural Farzaneh Daniel MD examination 02/04/2019 I10 Essential (primary) hypertension Farzaneh Daniel MD 02/04/2019 E11.9 Type 2 diabetes mellitus without Farzaneh Daniel MD complications 02/04/2019 Z68.38 Body mass index (BMI) 38.0-38.9, adult Farzaneh Daniel MD 02/04/2019 E11.9 Type 2 diabetes mellitus without [facility] complications 01/17/2019 E66.9 Obesity, unspecified Farzaneh Daniel MD 01/17/2019 E55.9 Vitamin D deficiency, unspecified [facility] 01/17/2019 E11.9 Type 2 diabetes mellitus without [...] index (BMI) 38.0-38.9, adult Farzaneh Daniel MD 01/17/2019 E11.9 Type 2 diabetes mellitus without [facility] complications 11/04/2018 E66.9 Obesity, unspecified Farzaneh Daniel MD 11/04/2018 E11.9 Type 2 diabetes mellitus without Farzaneh Daniel MD complications 11/04/2018 I10 Essential (primary) hypertension Farzaneh Daniel MD 11/04/2018 R42 Dizziness and giddiness Farzaneh Daniel MD 11/04/2018 M17.0 Bilateral primary osteoarthritis [...] Daniel MD 10/04/2018 R06.02 [facility] 08/20/2018 E66.01 Morbid (severe) obesity [...] 10:00 am - Farzaneh Daniel MD at [id number] - Farzaneh Daniel MDE66.9 Obesity, xtfvmqezmlbS77.818 Encounter for other preprocedural sjkrmycqkyeM87 Essential (primary) pxlxkkyzpgiuG08.9 Type 2 diabetes mellitus without ahnovxqqdrflhP56.38 Body mass index (BMI) 38.0-38.9, adult Functional Status Description No Information Available Mental Status Description No Information Available Referrals Refer to Dr Reason for Referral Status Appt Date Sarah Mohamud DR BILATERAL KNEE PAIN 01/01-SCHEDULED WITH ART. Scheduled 01/20/2019 [facility]VM ADVISING AND MAILED TO [facility] [address] [place] [address] [phone]
--- OUTSIDE RECORDS SUMMARY | 2019-02-20 10:31 | XMS REPORT | Continuity of Care Document ---
:1945 External Reference #:[id number] Author Name Farzaneh Daniel MD Address [address] [place] [address] Problems Active Problems Provider Date Type 2 [...] 04/30/2018 Propionate Nasal every day-norma Chakraborty MD [place] sample 50mcg/Act Suspension Shingrix 2 shot series 2units Farzaneh Daniel 12/18/2017 50mcg MD [facility] Suspension Rec Duloxetine HCL 1 by mouth twice 60caps M17.0 [facility] 11/06/2017 60mg a day MD Maury Chakraborty DR Aspirin Enteric 1 by mouth every E78.2 [facility] 03/06/2017 Coated Adult Low day MD [facility] Strength 81mg Tablets DR Knee Sleeve/Open large dx: bilat 2units M17.0 [facility] 12/14/2015 Patella/Medium/Neopre OA MD [facility] ne Misc Coenzyme Q-10 2 by mouth every E78.2 [facility] 10/22/2015 100mg day MD [facility] Capsules Freestyle Lite Test for fsbg's bid 1Box E11.9 [facility] 03/05/2012 Strips MD [facility] Lancets for fsbg's 1Box E11.9 [facility] 03/05/2012 MD [facility] Vitamin D3 1 po qd E55.9 [facility] 10/08/2009 2000Unit MD [facility] Capsules Cpap heated pressure G47.33 [facility] 07/31/2007 10CM MD [facility] dx: beth Metformin HCL ER take two tablets 360tabs E11.9 [facility] 2006 500mg by mouth ghanshyam Chakraborty MD Tablets ER 24HR History Medications Duloxetine HCL 1 by mouth every 7caps [facility] 08/23/2018 - 30mg day x 1 week MD [facility] 10/04/2018 Maury Rosado Medications Administered in Office Medication SIG Qnty Indications Ordering Provider Date Depo Medrol 80 MG Farzaneh Daniel MD 01/04/2016 Injection Immunizations CPT Code Status Date Vaccine Lot # [id number] Given 02/19/2018 Influenza Vac, Quadrivalent, Split, 0.5mL Dosage, [id number] Im Use 39508 Given 03/06/2017 Influenza Vac, Quadrivalent, Split, 0.5mL Dosage, [id number] Im Use 49582 Given 03/06/2016 Influenza Vac, Quadrivalent, Split, 0.5mL Dosage, [id number] Im Use 57632 Given 01/04/2016 Tdap (Adacel) Ages 7 And Above Only [id number] 23453 Given 04/27/2015 Influenza Vac, Quadrivalent, Split, 0.5mL Dosage, [id number] Im Use 01828 Given 08/04/2014 Prevnar 13 Pneumococal Conjugate Vaccine [id number] Q2038 Given 03/16/2014 Fluzone Trivalent Immunization [id number] Q2038 Given 03/17/2013 Fluzone Trivalent Immunization 03219 Given 06/12/2012 Pneumococcal 23 Immunization Adult Or [id number] Immunosuppressed Patient Vital Signs Date Vital Result [...] Test Result H/L Range Note Basic (BMP) 01/17/2019 [facility] Sodium 138 mmol/L 135-146 1, 2 Potassium 5.3 mmol/L High 3.5-5.2 Chloride# 96 mmol/L Low 97-110 3 Carbon Dioxide 29 mmol/L 24-34 Glucose 119 mg/dL High 70-105 BUN 14 mg/dL 6-26 Creatinine 1.0 mg/dL 0.5-1.4 Calcium 10.0 mg/dL 8.5-10.5 4 Female Egfr 60 Low >60 5 Male Egfr 80 >60 6 Anion Gap 13 mmol/L 5-15 7 Hemoglobin A1c 01/17/2019 [facility] Hemoglobin A1c 6.3 % High 4.1-5.9 Estimated Average Glucose Calc 134 mg/dL 71-140 Lipid Treatment 01/17/2019 [facility] Cholesterol 128 mg/dL 50-199 Triglycerides 112 mg/dL 30-200 HDL 46 mg/dL 29-71 8 Chol/ HDL Ratio 2.8 ratio Low 4.0-6.7 VLDL 22 mg/dL 2-29 LDL (Calc) 60 mg/dL 20-99 9 Alt 36 U/L 3-42 Ast 37 U/L 8-42 Laboratory test finding 01/17/2019 [facility] Vitamin D 25 61 ng/mL 30-100 10 Hydroxy Basic (BMP) 11/04/2018 [facility] Sodium 139 mmol/L 135-146 11 Potassium 4.1 mmol/L 3.5-5.2 Chloride# 96 mmol/L Low 97-110 12 Carbon Dioxide 31 mmol/L 24-34 Glucose 129 mg/dL High 70-105 BUN 17 mg/dL 6-26 Creatinine 1.1 mg/dL 0.5-1.4 Calcium 9.9 mg/dL 8.5-10.5 13 Female Egfr 51 Low >60 14 Male Egfr 68 >60 15 Anion Gap 12 mmol/L 5-15 16 CBC with Auto Diff-fcmg 11/04/2018 [facility] WBC [...] Basophils 0.1 K/uL 0.0-0.3 Hemoglobin A1c 11/04/2018 [facility] Hemoglobin A1c 6.8 % High 4.1-5.9 Estimated Average Glucose Calc 148 mg/dL High 71-140 Laboratory test finding 11/04/2018 [facility] TSH 3.04 uIU/mL 0.35-4.94 CMB Reflex 10/04/2018 [facility] CKMB 2.8 ng/mL (0.0-5.0) [phone] CKMB Relative Index 1.6 {index_val} (0.0-4.0) CKMB Panel-RL 10/04/2018 [facility] CK 174 U/L (39-308) 17 Lipid Treatment 10/04/2018 [facility] Cholesterol 200 mg/dL High 50-199 18 Triglycerides 146 mg/dL 30-200 HDL 45 mg/dL 29-71 19 Chol/ HDL Ratio 4.5 ratio 4.0-6.7 VLDL 29 mg/dL 2-29 LDL (Calc) 126 mg/dL High 20-99 20 Alt 49 U/L High 3-42 Ast 42 U/L 8-42 Hemoglobin A1c 10/04/2018 [facility] Hemoglobin A1c 6.8 % High 4.1-5.9 Estimated Average Glucose Calc 148 mg/dL High 71-140 Basic (BMP) 10/04/2018 [facility] Sodium 141 mmol/L 135-146 21 Potassium 4.9 mmol/L 3.5-5.2 Chloride# 96 mmol/L Low 97-110 22 Carbon Dioxide 28 mmol/L 24-34 Glucose 104 mg/dL 70-105 BUN 16 mg/dL 6-26 Creatinine 1.0 mg/dL 0.5-1.4 Calcium 10.4 mg/dL 8.5-10.5 23 Female Egfr 60 Low >60 24 Male Egfr 80 >60 25 Anion Gap 17 mmol/L High 5-15 26 Laboratory test finding 10/04/2018 [facility] CPK 149 U/L 12-199 Laboratory test finding 10/04/2018 [facility] D-Dimer,Sensitiv 0.94 mg/L High (<0.50) 27 e CBC with Auto Diff-fcmg [facility]20[facility] 9[facility]0 K/uL 4.1-11.0 28 RBC 4.78 M/uL 4.60-6.10 Hemoglobin 15.5 gm/dL [...] 08/20/2018 [facility] Sodium 142 mmol/L 135- 146 29 Potassium 4.4 mmol/L 3.5-5.2 Chloride# 101 mmol/L 97-110 30 Carbon Dioxide 31 mmol/L 24-34 Glucose 114 [...] High 8-42 Anion Gap 10 mmol/L 5-15 31 Vicky Egfr >60 >60 32 Non Vicky Egfr >60 >60 33 Lipid 08/20/2018 [facility] Cholesterol 177 mg/dL 50-199 Triglycerides 215 mg/dL High 30-200 HDL 32 mg/dL 29-71 34 Chol/ HDL Ratio 5.6 ratio 4.0-6.7 VLDL 43 mg/dL High 2-29 LDL (Calc) 102 mg/dL High 20-99 35 Hemoglobin A1c 08/20/2018 [facility] Hemoglobin A1c 6.1 % High 4.1-5.9 Estimated Average Glucose Calc 128 mg/dL 71-140 Laboratory test finding 08/20/2018 [facility] Vitamin D 25 Hydroxy 52 ng/mL 30-100 36 NT Pro BNP 69 pg/mL (0-125) 37 Laboratory test 08/20/2018 [facility] D-Dimer,Sensitive 1.55 mg/L High (< 0.50) 38 finding 1 This sample is drawn by:NB. 2 Updated reference range on new analyzer [...] the kidneys. 7 Updated Reference Range 8 Per NCEP ATP III Guidelines: Results lower than 40 mg/dL are suggestive of increased risk for coronary artery disease. Results > or = to 60 mg/dL are considered a negative risk factor. 9 Per NCEP ATP III Guidelines: Normal Population <130 Patients with medical conditions: CHD/DM Optimal: <100 Borderline high: 130-159 High: 160-189 Very high: >189 10 Clinical Guidelines for recommended serum 25(OH)Vitamin D Deficient at less than 20 ng/mL Insufficient at 20 to <30 ng/mL Sufficient at 30-100 ng/mL Toxicity at greater than 100 ng/mL 11 Updated reference range on new analyzer 12 Updated reference range on new analyzer 13 Updated reference range 09-11-2018 14 Concerning GFR Guidelines for Americans: Normal function or mild renal disease, if clinically at risk: >/= 60 mL/min Moderately decreased: 30-59 Severely decreased: 15-29 Renal failure: <15 There is reduced accuracy above 60ml/min/1.73 m squared, but the numeric value may be clinically useful in the near 60 range 15 Concerning GFR Guidelines: Normal function or mild [...] drugs that are excreted by the kidneys. 16 Updated Reference Range 17 Unless otherwise specified, testing performed by [facility] [address] [place] [id number] 18 Specimen received unspun 19 Per NCEP ATP III Guidelines: Results lower than 40 mg/dL are suggestive of increased risk for coronary artery disease. Results > or = to 60 mg/dL are considered a negative risk factor. 20 Per NCEP ATP III Guidelines: Normal Population <130 Patients with medical conditions: CHD/DM Optimal: <100 Borderline high: 130-159 High: 160-189 Very high: >189 21 Updated reference range on new analyzer 22 Updated reference range on new analyzer 23 Updated reference range 09-11-2018 24 Concerning GFR Guidelines for Americans: Normal function or mild renal disease, if clinically at risk: >/= 60 mL/min Moderately decreased: 30-59 Severely decreased: 15-29 Renal failure: <15 There is reduced accuracy above 60ml/min/1.73 m squared, but the numeric value may be clinically useful in the near 60 range 25 Concerning GFR Guidelines: Normal function or mild [...] drugs that are excreted by the kidneys. 26 Updated Reference Range 27 Unless otherwise specified, testing performed by [facility] [address] [place] [id number] 28 This sample is drawn by:[facility]. 29 Updated reference range on new analyzer 30 Updated reference range on new analyzer 31 Updated Reference Range 32 Concerning GFR Guidelines for Americans: Normal function or mild renal disease, if clinically at risk: >/= 60 mL/min Moderately decreased: 30-59 Severely decreased: 15-29 Renal failure: <15 33 Concerning GFR Guidelines: Normal function or mild [...] drugs that are excreted by the kidneys. 34 Per NCEP ATP III Guidelines: Results lower than 40 mg/dL are suggestive of increased risk for coronary artery disease. Results > or = to 60 mg/dL are considered a negative risk factor. 35 Per NCEP ATP III Guidelines: Normal Population <130 Patients with medical conditions: CHD/DM Optimal: <100 Borderline high: 130-159 High: 160-189 Very high: >189 36 Clinical Guidelines for recommended serum 25(OH)Vitamin D Deficient at less than 20 ng/mL Insufficient at 20 to <30 ng/mL Sufficient at 30-100 ng/mL Toxicity at greater than 100 ng/mL 37 Unless otherwise specified, testing performed by [facility] [address] [place] [address] 38 Unless otherwise specified, testing performed by [facility] [address] [place] [address] Procedures Date Code Description Status 02/04/2019 64465 Electrocardiogram Complete Completed 10/04/2018 64736 Measure Blood Oxygen Level Single Determination Completed 08/20/2018 45191 Electrocardiogram Complete Completed Medical Devices Description No [...] (BMI) 38.0-38.9, adult Farzaneh Daniel MD 01/17/2019 E66.9 Obesity, unspecified Farzaneh Daniel MD [...] 10:00 am - Farzaneh Daniel MD at [id number]/04 - Farzaneh Daniel MDE66.9 Obesity, weoxyzfeyfkN85.818 Encounter for other preprocedural bwkqrpxulldG23 Essential (primary) yxviatzaocsrB09.9 Type 2 diabetes mellitus without txfizzygboamlN30.38 Body mass index (BMI) 38.0-38.9, adult Functional Status Description No Information Available Mental Status Description No Information Available Referrals Refer to Reason for Referral Status Appt Date Sarah Mohamud DR BILATERAL KNEE PAIN 01/01-SCHEDULED WITH [facility]. Scheduled 01/20/2019 LVM ADVISING AND MAILED TO [facility] [address] [place] [address] [phone]
[2019-02-20] MEDS ORDERED: Midazolam* 1 MG/ML 5 ML VIAL (5 MG) ONE (11:07)
[2019-02-20] MEDS ORDERED: ROPIVACAINE 5 MG/ML 30 ML BTL (0.5%) ONE (13:03)
[2019-02-20] MEDS ORDERED: KETAMINE HCL* 50 MG/ML 10 ML VIAL ONE (13:36)
[2019-02-20] MEDS ORDERED: Ondansetron INJ* 2 MG/ML VIAL ONE (13:53)
[2019-02-20] MEDS ORDERED: Ketorolac INJ* 30 MG/ML 1 ML VIAL ONE (13:53)
[2019-02-20] MEDS ORDERED: Lidocaine 2% PF * 5 ML VIAL ONE (13:53)
[2019-02-20] MEDS ORDERED: DiMENhydriNATE IV* 50 MG/ML VIAL ONE (13:53)
[2019-02-20] MEDS ORDERED: Dexamethasone IV* 4 MG/ML 1 ML (4 MG) ONE (13:53)
[2019-02-20] MEDS ORDERED: Phenylephrine 40 MCG/ML SYRINGE ONE (13:53)
[2019-02-20] MEDS ORDERED: Propofol* 10 MG/ML 20 ML BTL ONE ×2 (13:53→14:22)
[2019-02-20] MEDS ORDERED: fentaNYL* 50 MCG/ML 2 ML VIAL (100 MCG VIAL) ONE (14:26)
[2019-02-20] MEDS ORDERED: Acetaminophen IV 1GM/100ML * 100 ML ONE (15:02)
[2019-02-20] MEDS ORDERED: diPHENhydraMINE IV* 50 MG/ML 1 ml VIAL (BENADRYL) IV PRN (15:05)
[2019-02-20] MEDS ORDERED: Ondansetron INJ* 2 MG/ML VIAL IV PRN (15:05)
[2019-02-20] MEDS ORDERED: Ondansetron ODT TAB* 4 MG PO PRN (15:05)
[2019-02-20] MEDS ORDERED: oxyCODONE/Acetamin 5/325 MG* TAB PO PRN (15:05)
[2019-02-20] MEDS ORDERED: Magnesium Hydroxide LIQ* 30 ML UDC PO PRN (15:05)
[2019-02-20] MEDS ORDERED: Acetaminophen TAB* 325 MG PO PRN (15:05)
[2019-02-20] MEDS ORDERED: Morphine INJ* 2 MG/ML 1 ML SYRINGE (TWO MG - NEW SYRINGE VERSION) IV PRN (15:05)
[2019-02-20] MEDS ORDERED: diPHENhydraMINE PO* 25 MG PO PRN (15:05)
[2019-02-20] MEDS ORDERED: Dextrose 50% VIAL 50 ml IV PUSH PRN (15:39)
--- NOTE | 2019-02-20 16:09 | OP ---
Operative Report - Blank - Operative Report Date of Operation: 02/20/19 Note: FREDRICK KENNEDY 1945 Date of Surgery: 02/20/19 Sarah Mohamud MD Attractions Associate: Alex MARTINI did help throughout the procedure with preparation of the knee, wound retraction, manipulation of the knee, and wound closure. Anesthesiologist: Ori Hudson MD Anesthesia Type: Spinal Preoperative Diagnosis: Left severe degenerative osteoarthritis of the knee Postoperative Diagnosis: As above Procedure Performed: Left Total Knee Arthroplasty Tourniquet time: 56 minutes Complications: None Specimen: Bone and cartilage from the left knee joint sent to pathology. Hardware Used: Cemented Gomez [employer] Nephew total knee hardware was used - For the femur a size 6 left legion posterior stabilized femoral component, for the tibia a size 5 left filippo II tibial baseplate, for the insert a size 9mm 5-6 posterior stabilized articular polyethylene insert, and for the patella a size 35 3-peg all poly patella. Brief History/Indication: FREDRICK KENNEDY was known in clinic and had a history of severe left knee pain and swelling. He failed conservative treatment with anti- inflammatories, pain pills, intra-articular injections and physical therapy. He elected to undergo left total knee arthroplasty due to continued pain and decreased quality of life. Radiographs showed severe end stage osteoarthritis of the knee with bone on bone contact. Informed consent was obtained from the patient. He understood the risks of surgery included but were not limited to: bleeding, infection, damage to nearby structures, intraoperative fracture, nerve palsy, failure of the hardware, early loosening, knee stiffness or loss of motion, anesthesia complications, stroke, heart attack, blood clot and . He wished to proceed. Intra-Operative Findings: Intraoperatively the patient was noted to have severe loss of cartilage in all 3 compartments of the knee. Description of the Procedure: FREDRICK KENNEDY was identified in the preanesthesia unit. His left knee was marked as the correct operative side. Informed consent was signed and placed in the chart. The patient was taken to the operating room and placed under anesthesia without complication. A argueta catheter was placed. A tourniquet was placed on the left thigh. The left lower extremity was prepped and draped in the usual sterile fashion. Preoperative time-out was made to correctly identify the patient, side and site. Appropriate intraoperative antibiotics were given within one hour of incision. Tourniquet was inflated. A midline incision was made and carried sharply down to the extensor mechanism. A new 10 blade was used to make a standard medial parapatellar arthrotomy. The patella was subluxed laterally. Electrocautery was used to dissect soft tissue off the superomedial tibia to the midsagittal plane. The knee was flexed up. The anterior horn of the lateral meniscus and the ACL were sharply incised. A drill was used to enter the distal femur. The intramedullary distal femoral cutting guide was pinned on the distal femur. The oscillating saw was used to make the distal femoral cut. The external rotation guide was pinned on the distal femur and the distal femur was sized to a size 6. The size 6 multi-cutting jig was pinned on the distal femur. The oscillating saw was used to make the appropriate 4 chamfer cuts. Next the PCL was completely released. The extramedullary tibial cutting guide was pinned on the proximal tibia and the oscillating saw was used to make the proximal tibial cut perpendicular to the mechanical axis of the tibia. The bone was carefully removed. The knee was brought out into full extension. The spacer block was placed and had excellent fit with the knee in full extension. The medial and lateral ligaments were well balanced. The flexion and extension gaps were well balanced. The knee was flexed up. Lamina abattoir supervisor was placed both medially and laterally. Any remaining meniscus was removed with electrocautery. Curved osteotome was used to remove any posterior osteophytes. The tibial tray and drop emmett were placed and confirmed a satisfactory tibial cut. The size 6 left femoral trial was impacted onto the distal femur. This trial had excellent fit and stability. The box for the posterior stabilized implant was prepared using a box cut osteotome and a reamer. Next a tibial tray trial and 9 mm insert trial was placed. The knee was taken through a range of motion and had full extension to 130 degrees of flexion. Patellofemoral tracking was satisfactory. The patella was inverted and sized to a size 35. Three peg holes were drilled through the size 35 drill guide. The trial patella was placed and the knee was taken through a range of motion. There was satisfactory patellofemoral tracking. All trials were removed. The tibia was subluxed anteriorly and sized to a size 5. The proximal tibial was prepared with a size 5 keel punch. All bony cut surfaces were irrigated with sterile saline and dried. Final implants were cemented into place starting with the tibia, followed by the femur, and last the patella. A 9 mm insert trial was placed and the knee was brought into full extension. Tourniquet was turned down and the knee was copiously irrigated with sterile saline. Electrocautery was used to obtain meticulous hemostasis. Once the cement had fully cured, the insert trial was removed. Any excess cement was removed from around the hardware and capsule. Final insert chosen was a 9 mm posterior stabilized Filippo II articular insert size 5-6. Stability of the insert was checked and noted to be stable. The extensor mechanism was closed using number 1 vicryls. The rest of the incision was closed in a layered fashion using 0 and 2-0 vicryls. The skin was closed using 3-0 nylon suture. Sterile xeroform, 4x4s and webril were used to cover the incision. Colin wrap and cold pack were used to cover the dressings. The patients anesthesia was reversed without difficulty. He was taken to the PACU in stable condition. Intended weight-bearing will be as tolerated.
[2019-02-20] MEDS ORDERED: DiMENhydriNATE IV* 50 MG/ML VIAL IV PUSH PRN (16:12)
[2019-02-20] MEDS ORDERED: HYDROmorphone INJ1* 1 MG/ML SYRINGE IV PRN (16:12)
[2019-02-20] MEDS ORDERED: oxyCODONE TAB* 5 MG TAB PO PRN (16:12)
[2019-02-20] MEDS ORDERED: Gabapentin CAP(*) 100 MG PO ONE (16:13)
[2019-02-20] MEDS: Lactated Ringers 1000 ML Bag* 1,000 ML IV SCH (17:53)
[2019-02-20] MEDS: Insulin LISPRO* 1 UNITS UNIT SUBCUT SCH ×3 (18:13→21:52)
--- NOTE | 2019-02-20 19:41 | CONS ---
CC: Dr. Sarah Mohamud; Dr. Farzaneh Daniel * [facility] MEDICINE CONSULTATION: DATE OF CONSULT: 02/20/19 REQUESTING PHYSICIAN ON CONSULT: Dr. Sarah Mohamud. PRIMARY CARE PHYSICIAN: Dr. Farzaneh Daniel. ATTENDING PHYSICIAN: Dr. Taylor Mosher. REASON FOR CONSULTATION: Co-medical management. HISTORY OF PRESENT ILLNESS: Mr. John is a 73-year-old male with past medical history of hypertension, hyperlipidemia, diabetes and obstructive sleep apnea, who presents to [facility] today for an elective left total knee arthroplasty. The patient has been following with Orthopedics and has failed conservative management and has elected to proceed with a left total knee arthroplasty. On my exam, the patient is in the PACU. He denies any pain and reports some throat discomfort, though otherwise feels well. The patient reports that he has been on metformin and Ozempic for quite some time and his diabetes is well managed. He believes that his last A1c was 6.8%, although he is not certain on this number. He reports his hypertension has also been well controlled on current medication, which he has been on for quite some time. PAST MEDICAL HISTORY: 1. Hypertension. 2. Hyperlipidemia. 3. Diabetes mellitus type 2. 4. Obstructive sleep apnea. PAST SURGICAL HISTORY: 1. Appendectomy. 2. Bilateral carpal tunnel release. 3. Cholecystectomy. HOME MEDICATIONS: 1. Amlodipine 10 mg p.o. daily. 2. Aspirin 81 mg p.o. daily. 3. Atorvastatin 10 mg p.o. daily. 4. Lisinopril/hydrochlorothiazide 10/12.5 mg 1 tab p.o. daily. 5. Metformin 1000 mg p.o. daily. 6. Ozempic 0.5 mg subcu every Sunday. ALLERGIES: No known drug allergies. FAMILY HISTORY: The patient reports heart disease in his mother. Family history is otherwise noncontributory. SOCIAL HISTORY: The patient lives alone. He denies any tobacco, alcohol, or recreational drug use. 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 The patient's jrbbseso-af-zol, Yelitza Brito, will be his surrogate decision maker in the event he is unable to make his own decisions. REVIEW OF SYSTEMS: An 11-point review of systems was performed and all the pertinent positive and negative findings are in the HPI. All other systems are negative. PHYSICAL EXAM: Mr. John is a well-developed, well-nourished, elderly white male, lying in bed, in no acute distress. Vitals Signs: Temp 97.6, heart rate 97, respiratory rate 20, oxygen saturation 99% on room air, blood pressure 140/ 92. HEENT: Head is atraumatic, normocephalic. Visual rahman are grossly intact. Oral mucous membranes are moist. Neck: Thyroid not palpable. Trachea midline. Respiratory: Symmetrical chest expansion. No chest wall deformities. Lungs: Clear to auscultation throughout. No rhonchi, wheezes, or rales. Cardiovascular: Regular rate and rhythm. S1 and S2 present. No murmurs , rubs, or gallops. No JVD. Extremities: Skin warm and smooth bilaterally. No edema. No clubbing or cyanosis. Neuro: Awake, alert, and oriented x4. Moves all extremities. Skin: There is a surgical dressing intact to the left knee. DIAGNOSTIC STUDIES/LAB DATA: The patient had lab work on 02/10/19, which showed WBC 10.9, RBC 4.74, hemoglobin 15.5, hematocrit 46, platelets 328. INR 1.08. Sodium 136, potassium 3.9, chloride 99, carbon dioxide 25, BUN 19, creatinine 0.92, glucose 113. Urinalysis with 1+ leukocyte esterase, 2+ wbc's, 2+ rbc's. Chest x-ray on 02/10/19 reads as no evidence for active cardiopulmonary disease. ASSESSMENT AND PLAN: Mr. John is a 73-year-old male with past medical history of hypertension, hyperlipidemia, diabetes and obstructive sleep apnea, who presents to [facility] today for an elective left total knee arthroplasty. Hospital Medicine has been asked to consult for co-medical management for: 1. Status post left total knee arthroplasty. Management per Ortho. 2. Hypertension. The patient is currently normotensive in PACU. I would recommend continuing his lisinopril, though holding hydrochlorothiazide at this point and we can reassess this tomorrow. I will continue his amlodipine. 3. Diabetes. It sounds as though the patient's diabetes is well controlled. I will continue his metformin and Orthopedics has ordered sliding scale insulin , which I agreed with at this point. 4. Obstructive sleep apnea. The patient can use his home CPAP machine. 5. Hyperlipidemia. Continue atorvastatin. 6. FEN: The patient does not require any fluid resuscitation or electrolyte repletion. I will put him on a consistent carb diet. 7. Code status: The patient will be full code. 8. DVT prophylaxis: Per Ortho. TIME SPENT: Approximately 40 minutes was spent on this consultation. AMBAR CHRISTIANSEN, FAMILY LIFE EDUCATOR [id number]/CPS #: [id number] JARET
[2019-02-20] MEDS: oxyCODONE TAB* 5 MG TAB PO PRN ×2 (19:42→23:41)
[2019-02-20] MEDS ORDERED: Insulin LISPRO* 1 UNITS UNIT SUBCUT SCH (21:34)
[2019-02-20] MEDS: ceFAZolin 1 GM ADVAN(*) 1 GM in NS 0.9% 50 ML* 50 ML IVPB SCH (21:43)
[2019-02-20] MEDS: Docusate CAP* 100 MG PO SCH (21:45)
[2019-02-20] MEDS: oxyCODONE/Acetamin 5/325 MG* TAB PO PRN (21:45)
[2019-02-20] MEDS: Magnesium Hydroxide LIQ* 30 ML UDC PO SCH (21:45)
[2019-02-20] MEDS: Cyclobenzaprine TAB* 10 MG PO PRN (21:46)
[2019-02-20] MEDS ORDERED: Insulin LISPRO* 1 UNITS UNIT SUBCUT PRN (22:00)
[2019-02-21] MEDS: oxyCODONE/Acetamin 5/325 MG* TAB PO PRN ×4 (03:52→17:12)
[2019-02-21] MEDS: ceFAZolin 1 GM ADVAN(*) 1 GM in NS 0.9% 50 ML* 50 ML IVPB SCH ×2 (05:46→12:54)
[2019-02-21] MEDS: Lactated Ringers 1000 ML Bag* 1,000 ML IV SCH ×2 (05:47→16:28)
[2019-02-21] MEDS: oxyCODONE TAB* 5 MG TAB PO PRN ×2 (05:53→20:15)
[2019-02-21 06:20] LABS: Hematocrit 38 % (42-52); Mean Platelet Volume 7.5 fL (7.4-10.4); Platelet Count 281 10^3/uL (150-450)
[2019-02-21 06:40] LABS: BUN/Creatinine Ratio 18.9 (8-20); Calcium 8.7 mg/dL (8.6-10.3); EGFR African American 100.7 (>60); EGFR Non-African American 83.2 (>60); Potassium 4.4 mmol/L (3.5-5.0)
[2019-02-21] MEDS: metFORMIN* 1,000 MG TAB PO SCH (08:30)
[2019-02-21] MEDS: Docusate CAP* 100 MG PO SCH ×2 (08:30→20:15)
[2019-02-21] MEDS: Lisinopril TAB* 10 MG PO SCH (08:30)
[2019-02-21] MEDS: Vitamin THERAPEUTIC TAB PO SCH (08:30)
[2019-02-21] MEDS: amLODIPine TAB* 5 MG PO SCH (08:30)
[2019-02-21] MEDS: Atorvastatin* 10 MG TAB PO SCH (08:30)
[2019-02-21] MEDS: Apixaban* 2.5 MG TAB PO SCH ×2 (08:30→20:15)
[2019-02-21] MEDS: Insulin LISPRO* 1 UNITS UNIT SUBCUT SCH ×4 (08:32→21:26)
[2019-02-21] MEDS: Magnesium Hydroxide LIQ* 30 ML UDC PO SCH ×2 (08:33→20:13)
[2019-02-21] MEDS ORDERED: Hydrochlorothiazide TAB* 25 MG PO SCH (09:00)
--- NOTE | 2019-02-21 10:56 | PN ---
Progress Note - Progress Note Date of Service: 02/21/19 SOAP: Subjective: [Pt was seen today sitting up in bed. The pt states that he is doing well. Pain is well controlled. He did well with PT. Denies any chest pain, SOB. Nausea or vomiting. He has been able to urinate. Unable to defecate but has been passing gas easily. ] Objective: [General: pt is alert and oriented x3. NAD MSK, LLE: Inspection of the leg reveals dressing that is c/d/i. Dressing is changed today. No drainage of discharge from wound. The pt ] Vital Signs Temp 97.2 F 02/21/19 08:08 Pulse 89 02/21/19 08:08 Resp 18 02/21/19 08:37 BP 117/74 02/21/19 08:08 Pulse Ox 95 02/21/19 08:08 Intake & Output 02/20/19 02/21/19 02/21/19 18:59 06:59 18:59 Intake Total 1400 1830 Output Total 400 405 Balance 1000 1425 Weight 243 lb Intake: IV Fluids 1400 1030 ABX - CEFAZOLIN 50 LR 1400 980 Oral 800 Output: Choudhary 400 405 Assessment: [POD 1 LTKA] Plan: [Continue with PT today. Finish post op abx Continue with percocet for pain management Eliquis bid x 30 days DC home today. ]
--- NOTE | 2019-02-21 11:00 | DS ---
Orthopedic Discharge Summary - Discharge Summary Date of Admission:02/20/19 Date of Discharge:02/21/19 Date of Surgery: 02/20/19 Attending Orthopedic Provider: Dr. Mohamud Pre-operative Diagnosis: Left knee osteoarthritis Operative Procedure: Left total knee arthroplasty Disposition of Patient: Home Condition of Patient: Good History: FREDRICK KENNEDY is a 73 year old M with years of increasingly severe left knee pain. Patient has failed conservative management and has elected to undergo a left total knee replacement Hospital Course: FREDRICK was admitted to [facility] on 02/20/19. Patient underwent a left knee replacement without complication followed by a brief recovery in PACU and transfer to the Short Stay Surgical Unit in stable condition. Our physical therapy and occupational therapy also participated in this patients care. Post-op day 1: patient was alert and in no acute distress. Dressing was clean, dry and intact. Dressing was changed. Operative extremity dorsiflexion and plantarflexion intact, sensation intact to light touch distally , DP2+. Patient was deemed to be medically and orthopedically stable for discharge. Physical therapy goals were met. Home Medications Medication Instructions Recorded Confirmed Type Amlodipine Besylate [Norvasc] 10 mg PO QAM 02/10/19 02/20/19 History Aspirin [Aspir-Low] 81 mg PO QAM 02/10/19 02/10/19 History Atorvastatin* [Lipitor*] 10 mg PO QAM 02/10/19 02/20/19 History Lisinopril/Hydrochlorothiazide 1 each PO QAM 02/10/19 02/20/19 History [Lisinopril-Hctz 10-12.5 mg Tab] Semaglutide [Ozempic] 0.5 mg SC .QTUES 02/10/19 02/20/19 History metFORMIN* [Glucophage 1000 MG TAB 1,000 mg PO QAM 02/10/19 02/20/19 History *] Discharge Instructions following Orthopedic Surgery: Activity: * Weight Bearing as tolerated * Continue physical therapy and occupational therapy exercises as shown Wound care: * OK to shower on post-op day 3, no bathing, swimming, or submerging wound. * Use gentle soap, pat dry. Cover with gauze, CHANCE wrap or tape. * Visiting home nurse to do wound checks. Call Orthopedic office for: * Increased drainage * Redness * Increased pain * Fever Go to ER with shortness of breath or chest pain. Diet: * Regular diet * Increase fluids and fiber to prevent constipation. * Continue to use stool softeners, call office if no bowel motion within 48 hours. Medications See Home Medication List in your packet for medications that you should take after discharge. DVT Prophylaxis: Eliquis Dosin.5 mg, 1 tab every 12 hours x 30 days Pain Control: Percocet Dosin/325 mg 1-2 tabs by mouth every 4-6 hours as needed for pain. Maximum of 10 tabs per day. Celebrex Dosin mg twice a day Please note that Percocet contains Tylenol (acetaminophen). Maximum daily dose of Tylenol is 4000 mg from all sources. All medications sent to home pharmacy Antibiotics are required prior to any dental work. FOLLOW UP: Follow up with [Cade] Within 10-14 days, call for appointment Please call our office with any questions or concerns ([phone])
[2019-02-21] MEDS: Cyclobenzaprine TAB* 10 MG PO PRN (15:46)
[2019-02-21] MEDS ORDERED: NS 0.9% 1000 ML** 1,000 ML IV ONE (16:16)
[2019-02-22] MEDS: Lactated Ringers 1000 ML Bag* 1,000 ML IV SCH (02:58)
[2019-02-22] MEDS: oxyCODONE/Acetamin 5/325 MG* TAB PO PRN ×2 (03:02→08:08)
[2019-02-22 05:42] LABS: Hematocrit 35 % (42-52); Hemoglobin 12.1 g/dL (14.0-18.0); Mean Platelet Volume 7.9 fL (7.4-10.4); Platelet Count 247 10^3/uL (150-450)
[2019-02-22] MEDS: Insulin LISPRO* 1 UNITS UNIT SUBCUT SCH (07:14)
[2019-02-22 07:54] VITALS: BP 120/61
[2019-02-22] MEDS: Magnesium Hydroxide LIQ* 30 ML UDC PO SCH (08:09)
[2019-02-22] MEDS: Docusate CAP* 100 MG PO SCH (08:09)
[2019-02-22] MEDS: amLODIPine TAB* 5 MG PO SCH (08:09)
[2019-02-22] MEDS: Atorvastatin* 10 MG TAB PO SCH (08:09)
[2019-02-22] MEDS: metFORMIN* 1,000 MG TAB PO SCH (08:09)
[2019-02-22] MEDS: Vitamin THERAPEUTIC TAB PO SCH (08:09)
[2019-02-22] MEDS: Apixaban* 2.5 MG TAB PO SCH (08:09)
[2019-02-22] MEDS: Lisinopril TAB* 10 MG PO SCH (08:09)
--- NOTE | 2019-02-22 08:47 | PN ---
Subjective Date of Service: 02/22/19 Interval History: No acute issues overnight No further episodes of hypotension. Currently no chest pain, no shortness of breath, no headaches. Occasional Left knee pain Objective Active Medications: Acetaminophen (Tylenol Tab*) 650 mg PO Q8HR PRN PRN Reason: MILD PAIN or TEMP > 100.4 Amlodipine Besylate (Norvasc Tab*) 10 mg PO QAM [facility] Last Admin: 02/22/19 08:09 Dose: 10 mg Apixaban (Eliquis*) 2.5 mg PO BID [facility] Last Admin: 02/22/19 08:09 Dose: 2.5 mg Atorvastatin Calcium (Lipitor*) 10 mg PO QAM [facility] Last Admin: 02/22/19 08:09 Dose: 10 mg Bisacodyl (Dulcolax Supp*) 10 mg CO DAILY PRN PRN Reason: CONSTIPATION Cyclobenzaprine HCl (Flexeril Tab*) 10 mg PO Q6H PRN PRN Reason: SPASMS Last Admin: 02/21/19 15:46 Dose: 10 mg Dextrose (Dextrose 50% Vial 50 Ml*) 25 ml IV PUSH .FOR FS < 60 - SS PRN PRN Reason: FS < 60 Diphenhydramine HCl (Benadryl Iv*) 25 mg IV Q6H PRN PRN Reason: PRURITIS Diphenhydramine HCl (Benadryl Po*) 25 mg PO Q6H PRN PRN Reason: PRURITIS Docusate Sodium (Colace Cap*) 100 mg PO BID [facility] Last Admin: 02/22/19 08:09 Dose: 100 mg Lactated Ringer's (Lactated Ringers 1000 Ml Bag*) 1,000 mls @ 100 mls/hr IV PER RATE [facility] Last Admin: 02/22/19 02:58 Dose: 100 mls/hr Insulin Human Lispro (Humalog*) 0 units SUBCUT ACHS [facility]; Protocol Last Admin: 02/22/19 07:14 Dose: Not Given Lactulose (Lactulose*) 30 ml PO BID PRN PRN Reason: CONSTIPATION Lisinopril (Prinivil Tab*) 10 mg PO QAM [facility]; Protocol Last Admin: 02/22/19 08:09 Dose: 10 mg Magnesium Hydroxide (Milk Of Magnesia Liq*) 30 ml PO BID [facility] Last Admin: 02/22/19 08:09 Dose: Not Given Magnesium Hydroxide (Milk Of Magnesia Liq*) 30 ml PO Q6H PRN PRN Reason: CONSTIPATION Metformin HCl (Glucophage*) 1,000 mg PO QAM [facility] Last Admin: 02/22/19 08:09 Dose: 1,000 mg Morphine Sulfate (Morphine Inj (Syringe))*) 2 mg IV Q4H PRN PRN Reason: Pain - Unrelieved Multivitamins (Theragran Tab*) 1 tab PO DAILY [facility] Last Admin: 02/22/19 08:09 Dose: 1 tab Ondansetron HCl (Zofran Inj*) 4 mg IV Q6H PRN PRN Reason: NAUSEA Ondansetron HCl (Zofran Odt Tab*) 4 mg PO Q6H PRN PRN Reason: NAUSEA Oxycodone HCl (Roxycodone Tab*) 10 mg PO Q4H PRN PRN Reason: Pain - Breakthrough Last Admin: 02/21/19 20:15 Dose: 10 mg Oxycodone/Acetaminophen (Percocet 5/325 Tab*) 1 tab PO Q4H PRN PRN Reason: PAIN - MODERATE Oxycodone/Acetaminophen (Percocet 5/325 Tab*) 2 tab PO Q4H PRN PRN Reason: PAIN - SEVERE Last Admin: 02/22/19 08:08 Dose: 2 tab Vital Signs - 8 hr 02/22/19 02/22/19 02/22/19 03:02 03:50 07:10 Temperature 97.9 F Pulse Rate 94 Respiratory 18 18 18 Rate Blood Pressure 126/86 (mmHg) O2 Sat by Pulse 97 Oximetry 02/22/19 02/22/19 07:54 08:08 Temperature 98.0 F Pulse Rate 97 Respiratory 16 18 Rate Blood Pressure 120/61 (mmHg) O2 Sat by Pulse 94 Oximetry Oxygen Devices in Use Now: None, CPAP Appearance: Eating breakfast in no distress Eyes: PERRLA Respiratory: Symmetrical Chest Expansion and Respiratory Effort, Clear to Auscultation Cardiovascular: NL Sounds; No Murmurs; No JVD, RRR Abdominal: NL Sounds; No Tenderness; No Distention, No Hepatosplenomegaly Neurological: Alert and Oriented x 3 Result Diagrams: 02/22/19 04:47 02/21/19 05:58 Assess/Plan/Problems-Billing Assessment: - Patient Problems (1) Hypertension Current Visit: Yes Status: Acute Code(s): I10 - ESSENTIAL (PRIMARY) HYPERTENSION SNOMED Code(s): 49749116 Comment: Controlled. did have episodes of hypotension during this admission Continue amlodipine and lisinopril. Hold HCTZ. Status and Disposition: Additional management per primary team.
[2019-02-22] MEDS ORDERED: Bisacodyl SUPP* 10 MG SUPP PR PRN (15:05)
== END 2019-02-22 11:00 | disposition home or self-care (01) | DRG 470 ==
LOC: AA 10:26 → SSU 17:57
PROVIDERS: ADMIT Orthopaedic Surgery Adult Reconstructive Orthopaedic Surgery; ATTEND Orthopaedic Surgery Adult Reconstructive Orthopaedic Surgery
PROC: 0SRD0J9 Replacement of Left Knee Joint with Synthetic Substitute, Cemented, Open Approach (ICD-10-PCS; principal; 2019-02-20 13:45)
DX: M17.12 Unilateral primary osteoarthritis, left knee (principal); I10 Essential (primary) hypertension; E78.00 Pure hypercholesterolemia, unspecified; M25.462 Effusion, left knee; G47.33 Obstructive sleep apnea (adult) (pediatric); E78.2 Mixed hyperlipidemia; E66.9 Obesity, unspecified; H91.90 Unspecified hearing loss, unspecified ear; M48.00 Spinal stenosis, site unspecified; M25.762 Osteophyte, left knee; E11.40 Type 2 diabetes mellitus with diabetic neuropathy, unspecified; L30.9 Dermatitis, unspecified; Z97.4 Presence of external hearing-aid; Z85.828 Personal history of other malignant neoplasm of skin; Z90.49 Acquired absence of other specified parts of digestive tract; Z68.38 Body mass index [BMI] 38.0-38.9, adult; I95.9 Hypotension, unspecified; Z79.82 Long term (current) use of aspirin; Z79.84 Long term (current) use of oral hypoglycemic drugs
CPT/HCPCS: 36415; 80048; 85014; 85018; 85049; 88305; 88311; A9270-GY; C1776; G8978-GP-CJ; G8979-GP-CI; G8987-GO-CJ; G8988-GO-CJ; G8989-GO-CJ; J0690; J1100; J1240; J1885; J2250; J2405; J2704; J2795; J3010

== ENCOUNTER 2019-05-02 06:20 | Inpatient (IN) | payer MEDICARE ==
--- NOTE | 2019-04-22 14:12 | HP ---
HISTORY AND PHYSICAL: DATE OF ADMISSION/SURGERY: 05/02/19 DATE OF OFFICE VISIT: 04/21/19 SURGEON: Sarah Mohamud MD.* (DICTATED BY VINI CARBALLO) PROCEDURE: Right total knee arthroplasty. CHIEF COMPLAINT: Right knee pain. HISTORY OF PRESENT ILLNESS: Mr. John is a 73-year-old male with end-stage osteoarthritis of the right knee. He has failed conservative treatment and elected to proceed with a right total knee arthroplasty. PAST MEDICAL HISTORY: 1. Hypertension. 2. High cholesterol. 3. Diabetes. 4. History of stroke. 5. Sleep apnea. PAST SURGICAL HISTORY: 1. Left total knee arthroplasty. 2. Bilateral carpal tunnel release. 3. Right triceps repair. 4. Cholecystectomy. 5. Appendectomy. CURRENT MEDICATIONS: 1. Atorvastatin calcium 20 mg a day. 2. Lisinopril/hydrochlorothiazide 20 mg/25 mg daily. 3. Amlodipine 5 mg a day. 4. Ozempic weekly. 5. Metformin 250 mg a day. 6. Duloxetine daily. 7. Aspirin 81 mg a day. ALLERGIES: No known drug allergies. FAMILY HISTORY: Coronary artery disease, cancer, diabetes, and stroke. SOCIAL HISTORY: This is a 73-year-old gentleman who lives alone. He does not smoke, use drugs or alcohol. REVIEW OF SYSTEMS: A complete 14-point review of systems was reviewed with the patient. It is positive for history of stroke and diabetes. He denies history of DVT, PE, hepatitis, HIV, or anesthesia problems. PHYSICAL EXAMINATION GENERAL: He is well developed, well nourished, in no acute distress. VITAL SIGNS: He is 66 inches tall, weighs 239 pounds. His blood pressure is 132/80 and his heart rate is 110. HEENT: Normocephalic, atraumatic. NECK: Supple. No palpable lymph nodes. PULMONARY: The lungs are clear to auscultation bilaterally. CARDIO: Regular rate and rhythm. Strong S1, S2. ABDOMEN: Soft, nontender, nondistended. NEUROLOGICAL: He is alert and oriented x3. MUSCULOSKELETAL: Right Lower Extremity: The skin is intact. There are no open wounds or abrasions. There is a moderate effusion of the right knee joint. Some tenderness along the medial joint line. Range of motion is 20 to 120 degrees of flexion. He is able to dorsiflex and plantarflex. He has 2+ dorsalis pedis pulse and intact sensation. ASSESSMENT AND PLAN: Mr. John is a 73-year-old gentleman with end-stage osteoarthritis of the right knee. He has failed conservative treatment and elected to proceed with a right total knee arthroplasty. This surgery is scheduled for 05/02/[address] Mohamud discussed the risks and benefits of the surgery at today's visit and all of his questions were answered. He will follow with Dr. Mohamud 2 weeks after the surgery. VINI CARBALLO [id number]/[facility] #: [id number] JARET
[~2019-05-02 06:20] MED LIST changes: -Famotidine IV* 10 MG/ML 2 ML (20 mg) IV ONE; -Famotidine IV* 10 MG/ML 2 ML (20 mg) ONE; -Lidocaine 1% MPF ** 5 ML VIAL ONE; -ROPIVACAINE 5 MG/ML 30 ML BTL (0.5%) ONE; -Tranexamic Acid 1,000 MG in NS 0.9% 50 ML* (outpatient use) IV SCH; -ceFAZolin 2 GM PREMIX in ORs 2 GM/50 ML BAG ONE
--- OUTSIDE RECORDS SUMMARY | 2019-05-02 06:23 | XMS REPORT | Continuity of Care Document ---
:1945 External Reference #:[id number] Author Name Sarah Mohamud M.D. (transmitted by agent of provider Lilibeth Patterson) Address [address] [place] [address] Care Team Providers Name Role Phone Farzaneh Daniel MD - Internal Care Team Information Exercise Instruct [phone] Medicine Problems Active Problems Provider Date Arthroplasty of knee Sarah Mohamud M.D. Onset: 03/03/2019 Localized, primary osteoarthritis Sarah Mohamud M.D. Onset: 01/20/2019 Social History Type Date Description Comments Sex Unknown ETOH Use Denies alcohol use Tobacco Use Start: Unknown Patient has never smoked Smoking Status Reviewed: 03/17/19 Patient has never smoked Exercise Type/Frequency Does not exercise Allergies, Adverse Reactions, Alerts Description No Known Drug Allergies Medications Active Medications SIG Qnty Indications Ordering Date Provider Percocet 1 - 2 tabs by 60tabs Sarah Mohamud, 02/21/2019 5-325mg Tablets mouth every 4 - 6 M.D. hours as needed for pain. pt on this dose in the [facility] take 1 tab twice 60tabs Sarah Mohamud, 02/21/2019 2.5mg Tablets a day x 30 days M.D. Ciprofloxacin HCL 1 tab by mouth 20tabs Vincent Tono, 02/12/2019 500mg twice daily x 10 MD Tablets days Atorvastatin Calcium Macadam, Farzaneh 20mg M., Tablets Lisinopril-Hydrochloro Macadam, Farzaneh thiazide MD Emma 20-25mg Tablets Amlodipine Besylate Macadam, Farzaneh 5mg MMD Gerardo Tablets Ozempic Macadam, Farzaneh 0.25or 0.5 MD Emma mg/Dose Solution Pen-Inject Metformin HCL ER Farzaneh Daniel 500mg MD Emma Tablets ER 24HR History Medications Keflex 1 tab by mouth 4 28caps Vincent Power MD 02/22/2019 - 500mg Capsules times daily x 7 03/02/2019 days Immunizations Description No Information Available Vital Signs Date Vital Result Comment 03/17/2019 2:21pm Height 66 inches 5'6" Weight 243.00 lb Heart Rate 88 /min BP Systolic 128 mmHg BP Diastolic 80 mmHg Respiratory Rate 16 /min Body Temperature 98.2 F Pain Level 3 BMI (Body Mass Index) 39.2 kg/m2 03/03/2019 4:10pm Height 66 inches 5'6" Weight 243.00 lb Heart Rate 108 /min BP Systolic Sitting 130 mmHg BP Diastolic Sitting 76 mmHg Respiratory Rate 18 /min Body Temperature 99.7 F Pain Level 5 O2 % BldC Oximetry 94 % BMI (Body Mass Index) 39.2 kg/m2 Results Test Acquired Date Facility Test Result H/L Range Note Urinalysis Profile 02/10/2019 [facility] Urine Color Yellow [address] [place] [address] [phone] Urine Appearance Cloudy Urine Specific Sullivan 1.017 Normal 1.010-1.030 Urine pH 5.0 Normal 5-9 Urine Urobilinogen Negative Negative Urine Ketones Negative Negative Urine Protein Negative Negative Urine Leukocytes 1+ Abnormal Negative Urine Blood Negative Negative Urine Nitrite Negative Negative Urine Bilirubin Negative Negative Urine Glucose Negative Negative Urine White Blood Cell 2+(11-20/hpf) Abnormal Absent Urine Red Blood Cell 2+(6-10/hpf) Abnormal Absent Urine Bacteria Absent Absent Urine Squamous Epithelial Cell Present Abnormal Absent Inr/Protime 02/10/2019 [facility] Inr 1.08 Normal 0.82-1.[address] [place] [address] [phone] Laboratory test 02/10/2019 [facility] Partial 36.7 Normal 26.0 -38.[address] [address] Time PTT [phone] Type & Screen 02/10/2019 [facility] Patient O Positive [address] [place] [address] [phone] Antibody Screen NEGATIVE Comp Metabolic 02/10/2019 [facility] Sodium 136 mmol/L Normal 135-[address] [place] [address] [phone] Potassium 3.9 mmol/L Normal 3.5-5.0 Chloride 99 mmol/L Low 101-111 Co2 Carbon Dioxide 25 mmol/L Normal 22-32 Anion Gap 12 mmol/L High 2-11 Glucose 113 mg/dL High 70-100 Blood Urea Nitrogen 19 mg/dL Normal 6-24 Creatinine 0.92 mg/dL Normal 0.67-1.17 BUN/Creatinine Ratio 20.7 High 8-20 Calcium 9.9 mg/dL Normal 8.6-10.3 Total Protein 7.2 g/dL Normal 6.4-8.9 Albumin 4.1 g/dL Normal 3.2-5.2 Globulin 3.1 g/dL Normal 2-4 Albumin/Globulin Ratio 1.3 Normal 1-3 Total Bilirubin 0.70 mg/dL Normal 0.2-1.0 Alkaline Phosphatase 94 U/L Normal 34-104 Alt 39 U/L Normal 7-52 Ast 41 U/L High 13-39 Egfr Non- 81.1 >60 Egfr 98.1 >60 2 CBC Auto 02/10/2019 [facility] White Blood 10.9 10^3/uL High 3.5-10.[address] [place] [address] [phone] Red Blood Count 4.74 10^6/uL Normal 4.18-5.48 Hemoglobin 15.5 g/dL Normal 14.0-18.0 Hematocrit 46 % Normal 42-52 Mean Corpuscular Volume 96 fL High 80-94 Mean Corpuscular Hemoglobin 33 pg High 27-31 Mean Corpuscular HGB Conc 34 g/dL Normal 31-36 Red Cell Distribution Width 13 % Normal 10-15 Platelet Count 328 10^3/uL Normal 150-450 Mean Platelet Volume 8.8 fL Normal 7.4-10.4 Abs Neutrophils 8.0 10^3/uL High 1.5-7.7 Abs Lymphocytes 1.8 10^3/uL Normal 1.0-4.8 Abs Monocytes 0.9 10^3/uL High 0-0.8 Abs Eosinophils 0.1 10^3/uL Normal 0-0.6 Abs Basophils 0.1 10^3/uL Normal 0-0.2 Abs Nucleated RBC 0.0 10^3/uL Granulocyte % 73.7 % Lymphocyte % 16.0 % Monocyte % 8.3 % Eosinophil % 1.0 % Basophil % 1.0 % Nucleated Red Blood Cells % 0.1 Urine Culture And 02/10/2019 [facility] Urine Culture SEE RESULT [address] [place] [address] [phone] 1 Standard intensity warfarin therapeutic range: 2.0-3.0 High intensity warfarin therapeutic range: 2.5-3.5 2 Because ethnic data is not always readily available, this report includes an eGFR for both -Americans and non- Americans. The National Kidney Disease Education Program (NKDEP) does not endorse the use of the MDRD equation for patients that are not between the ages of 18 and 70, are , have extremes of body size, muscle mass, or nutritional status, or are non- or non-. According to the National Kidney Foundation, irrespective of diagnosis, the stage of the disease is based on the level of kidney function: Stage Description GFR(mL/min/1.73 m(2)) 1 Kidney damage with normal or decreased GFR 90 2 Kidney damage with mild decrease in GFR 60-89 3 Moderate decrease in GFR 30-59 4 Severe decrease in GFR 15-29 5 Kidney failure <15 (or dialysis) 3 SEE RESULT BELOW Name: FREDRICK KENNEDY : [address]: Sarah Mohamud MD Acct: [id number] Unit: [id number] AGE: 73 Location: [facility] Re02/10/19 SEX: M Status: REG REF SPEC: [id number] BERENICE: 02/10/191445 [facility] DR: Sarah Mohamud MD REQ: [id number] RECD: 02/10/19 STATUS: COMP _ SOURCE: URINE SPDESC: ORDERED: Urine Culture QUERIES: Urine Source: Clean Catch Procedure Result Reported Site Urine Culture Final 02/12/19- 09 ML Organism 1 PSEUDOMONAS AERUGINOSA [place] Count 25-50,000 (Moderate) CFU/ML 1. PSEUDOMONAS AERUGINOSA M.I.C. RX --------- ------ Cefazolin >=64 R Cefepime <=1 S Ciprofloxacin <=0.25 S Gentamicin <=1 S Levofloxacin 0.5 S Meropenem <=0.25 S Pipercillin/Tazobactam <=4 S Contact the Microbiology Department for any additional antibiotic reporting. * - Main Lab . END OF REPORT DEPARTMENT OF PATHOLOGY, [address] [place] [address] Andrew Garsia M.D. Director [facility] # [id number] Procedures Date Code Description Status 02/20/2019 60943 TKR Total Knee Replacement Completed 02/20/2019 71984 TKR Total Knee Replacement Completed Medical Devices Description No Information Available Encounters Type Date Location Provider Dx Diagnosis Office Visit 03/17/2019 [facility] Sarah Mohamud, Z96.652 Presence of left 2:15p at [place] M.D. artificial knee joint M25.561 Pain in right knee M25.461 Effusion, right knee M17.11 Unilateral primary osteoarthritis, right knee Office Visit 02/22/2019 1:09p [facility] Sofi [facility] [facility] MD [place] (primary) Hospitalists hypertension Office Visit 02/20/2019 1:09p [facility] Marlen Won, [facility] [facility] [employer] (primary) Hospitalists hypertension E11.9 Type 2 diabetes mellitus without complications G47.33 Obstructive sleep apnea (adult) (pediatric) E78.5 Hyperlipidemia, unspecified Office Visit 01/20/2019 3:00p [facility] Sarah Mohamud, M25.561 Pain in right at [place] M.D. knee M25.562 Pain in left knee M25.462 Effusion, left knee M25.461 Effusion, right knee M17.0 Bilateral primary osteoarthritis of knee Assessments Date Code Description Provider 03/17/2019 Z96.652 Presence of left artificial knee joint Sarah Mohamud M.D. 03/17/2019 M25.561 Pain in right knee Sarah Mohamud M.D. 03/17/2019 M25.461 Effusion, right knee Sarah Mohamud M.D. 03/17/2019 M17.11 Unilateral primary osteoarthritis, right knee Sarah Mohamud M.D. 03/03/2019 Z47.1 Aftercare following joint replacement surgery Sarah Mohamud M.D. 03/03/2019 Z96.652 Presence of left artificial knee joint Sarah Mohamud M.D. 03/03/2019 M25.562 Pain in left knee Sarah Mohamud M.D. 03/03/2019 M25.462 Effusion, left knee Sarah Mohamud M.D. 02/22/2019 [facility] (primary) hypertension Sofi Bull MD 02/20/2019 [facility] (primary) hypertension Marlen Won, [employer] 02/20/2019 M17.12 Unilateral primary osteoarthritis, left knee VINI Monzon 02/20/2019 E11.9 Type 2 diabetes mellitus without Marlen Won, [employer] complications 02/20/2019 M17.12 Unilateral primary osteoarthritis, left knee Sarah Mohamud M.D. 02/20/2019 G47.33 Obstructive sleep apnea (adult) (pediatric) Marlen Won, [employer] 02/20/2019 E78.5 Hyperlipidemia, unspecified Marlen Won, [employer] 02/10/2019 M25.562 Pain in left knee Sarah Mohamud M.D. 02/10/2019 M25.462 Effusion, left knee Sarah Mohamud M.D. 02/10/2019 M17.0 Bilateral primary osteoarthritis of knee Sarah Mohamud M.D. 01/20/2019 M25.561 Pain in right knee Sarah Mohamud M.D. 01/20/2019 M25.562 Pain in left knee Sarah Mohamud M.D. 01/20/2019 M25.462 Effusion, left knee Sarah Mohamud M.D. 01/20/2019 M25.461 Effusion, right knee Sarah Mohamud M.D. 01/20/2019 M17.0 Bilateral primary osteoarthritis of knee Sarah Mohamud M.D. Plan of Treatment 03/17/2019 - Sarah Mohamud M.D.Z96.652 Presence of left artificial knee jointFollow up:Follow up:M25.561 Pain in right kneeFollow up:Follow up: 7-10 days before [id number] Effusion, right kneeM17.11 Unilateral primary osteoarthritis, right knee Functional Status Description No Information Available Mental Status Description No Information Available Referrals Description No Information Available
--- OUTSIDE RECORDS SUMMARY | 2019-05-02 06:23 | XMS REPORT | Continuity of Care Document ---
:1945 External Reference #:[id number] Author Name Farzaneh Daniel MD Address [address] [place] [address] Problems Active Problems Provider Date Type 2 [...] Patient has never smoked Smoking Status Reviewed: 04/08/19 Patient has never smoked Allergies, Adverse Reactions, [...] 04/30/2018 Propionate Nasal every day-norma Chakraborty MD [place] sample 50mcg/Act Suspension Shingrix 2 shot series 2units Farzaneh Daniel 12/18/2017 50mcg MD [place] Suspension Rec Duloxetine HCL 1 by mouth twice 60caps M17.0 [facility] 11/06/2017 60mg a day MD [place] Caps DR Part Aspirin Enteric 1 by mouth every E78.2 [facility] 03/06/2017 Coated Adult Low day MD [facility] Strength 81mg Tablets Knee Sleeve/Open large dx: bilat 2units M17.0 [facility] 12/14/2015 Patella/Medium/Neopre OA MD [facility] ne Misc Coenzyme Q-10 2 by mouth every E78.2 [facility] 10/22/2015 100mg day MD [facility] Capsules Freestyle Lite Test for fsbg's bid 1Box E11.9 [facility] 03/05/2012 Strips MD [facility] Lancets for fsbg's 1Box E11.9 [facility] 03/05/2012 MD [facility] Vitamin D3 1 po qd E55.9 [facility] 10/08/2009 2000Unit MD [facility] Capsules Cpap heated pressure G47.33 [facility] 07/31/2007 10CM MD [facility] dx: beth Metformin HCL ER take two tablets 360tabs E11.9 [facility] 2006 500mg by mouth ghanshyam Chakraborty MD Tablets ER 24HR Medications Administered in Office Medication SIG Qnty Indications Ordering Provider Date Depo Medrol 80 MG Farzaneh Daniel MD 01/04/2016 Injection Immunizations CPT Code Status Date Vaccine Lot # [id number] Given 04/08/2019 Influenza Virus Vaccine,Quadrivalent,Split,Preserv [id number] Free, 0.5mL,[place] [address] Given 02/19/2018 Influenza Vac, Quadrivalent, Split, 0.5mL Dosage, [id number] Im Use 37330 Given 03/06/2017 Influenza Vac, Quadrivalent, Split, 0.5mL Dosage, [id number] Im Use 01301 Given 03/06/2016 Influenza Vac, Quadrivalent, Split, 0.5mL Dosage, [id number] Im Use 68089 Given 01/04/2016 Tdap (Adacel) Ages 7 And Above Only [id number] 12938 Given 04/27/2015 Influenza Vac, Quadrivalent, Split, 0.5mL Dosage, [id number] Im Use 52367 Given 08/04/2014 Prevnar 13 Pneumococal Conjugate Vaccine [id number] Q2038 Given 03/16/2014 Fluzone Trivalent Immunization [id number] Q2038 Given 03/17/2013 Fluzone Trivalent Immunization 12041 Given 06/12/2012 Pneumococcal 23 Immunization Adult Or [id number] Immunosuppressed Patient Vital Signs Date Vital Result Comment 04/08/2019 11:26am Weight 246.00 lb Heart Rate 92 /min BP Systolic 128 mmHg BP Diastolic 70 mmHg Height 66.5 inches 5'6.50" BMI (Body Mass Index) 39.1 kg/m2 02/04/2019 11:31am Weight 245.00 lb Heart Rate 76 /min BP Systolic 120 mmHg BP Diastolic 76 mmHg Height 66.5 inches 5'6.50" BMI (Body Mass Index) 38.9 kg/m2 Results Test Acquired Date Facility Test Result H/L Range Note Laboratory test 04/08/2019 [facility] Hemoglobin A1c <pending> finding Laboratory test 04/08/2019 [facility] Vit D 25Oh <pending> finding CBC with Auto 02/04/2019 [facility] WBC 8.7 K/uL 4.1-11.0 1 Diff-fcmg RBC 4.64 M/uL 4.60-6.10 Hemoglobin 15.3 gm/dL [...] 0.0-0.5 Abs Basophils 0.1 K/uL 0.0-0.3 Basic ([facility]) 02/04/2019 [facility] Sodium 138 mmol/L 135-146 2 Potassium 4.4 mmol/L 3.5-5.2 Chloride# 95 mmol/L Low 97-110 3 Carbon Dioxide 26 mmol/L 24-34 Glucose 98 mg/dL 70-105 BUN 17 mg/dL 6-26 Creatinine 0.9 mg/dL 0.5-1.4 Calcium 10.0 mg/dL 8.5-10.5 4 Female Egfr 61 >60 5 Male Egfr 81 >60 6 Anion Gap 17 mmol/L High 5-15 7 Basic ([facility]) 01/17/2019 [facility] Sodium 138 mmol/L 135-146 8, [...] 25 61 ng/mL 30-100 17 Hydroxy Basic ([facility]) 11/04/2018 [facility] Sodium 139 mmol/L 135-146 18 Potassium 4.1 mmol/L 3.5-5.2 Chloride# 96 mmol/L Low 97-110 19 Carbon Dioxide 31 mmol/L 24-34 Glucose 129 mg/dL High 70-105 BUN 17 mg/dL 6-26 Creatinine 1.1 mg/dL 0.5-1.4 Calcium 9.9 mg/dL 8.5-10.5 20 Female Egfr 51 Low >60 21 Male Egfr 68 >60 22 Anion Gap 12 mmol/L 5-15 23 CBC with Auto Diff-fcmg 11/04/2018 [facility] WBC [...] finding 11/04/2018 [facility] TSH 3.04 uIU/mL 0.35-4.94 1 Specimen received unspun 1 SST 2 [...] by the kidneys. 23 Updated Reference Range Procedures Date Code Description Status 04/08/2019 35697 Electrocardiogram Complete Completed 02/04/2019 11701 Electrocardiogram Complete Completed Medical Devices Description No Information Available Encounters Type Date Location Provider Dx Diagnosis Office Visit 02/04/2019 Farzaneh Sanchez E66.9 Obesity, unspecified 11:30a MD [facility] Z01.818 Encounter for other preprocedural examination I10 Essential (primary) hypertension E11.9 Type 2 diabetes mellitus without complications Z68.38 Body mass index (BMI) 38.0-38.9, adult Office Visit 01/17/2019 10:00a Farzaneh Sanchez E66.9 Obesity, unspecified MD [facility] E11.9 Type 2 diabetes mellitus without complications I10 Essential (primary) hypertension M17.0 Bilateral primary osteoarthritis of knee E78.2 Mixed hyperlipidemia F43.21 Adjustment disorder with depressed mood M48.07 Spinal stenosis, lumbosacral region E55.9 Vitamin D deficiency, unspecified Z68.38 Body mass index (BMI) 38.0-38.9, adult Office Visit 11/04/2018 8:45a Farzaneh Sanchez E66.9 Obesity, unspecified MD [facility] E11.9 Type 2 diabetes mellitus without complications I10 Essential (primary) hypertension R42 Dizziness and giddiness M17.0 Bilateral primary osteoarthritis of knee E78.2 Mixed hyperlipidemia F43.21 Adjustment disorder with depressed mood I65.23 Occlusion and stenosis of bilateral carotid arteries R06.02 Shortness of breath Z68.39 Body mass index (BMI) 39.0-39.9, adult Assessments Date Code Description Provider 04/08/2019 E66.9 Obesity, unspecified Farzaneh Daniel MD 04/08/2019 Z01.818 Encounter for other preprocedural Farzaneh Daniel MD examination 04/08/2019 E11.9 Type 2 diabetes mellitus without Farzaneh Daniel MD complications 04/08/2019 I10 Essential (primary) hypertension Farzaneh Daniel MD 04/08/2019 E55.9 Vitamin D deficiency, unspecified Farzaneh Daniel MD 04/08/2019 E78.2 Mixed hyperlipidemia Farzaneh Daniel MD 04/08/2019 F43.21 Adjustment disorder with depressed mood Farzaneh Daniel MD 04/08/2019 G47.33 Obstructive sleep apnea (adult) (pediatric) Farzaneh Daniel MD 04/08/2019 Z68.39 Body mass index (BMI) 39.0-39.9, adult Farzaneh Daniel MD 02/04/2019 E66.9 Kim, unspecified Farzaneh Daniel MD 02/04/2019 Z01.818 Encounter [...] [facility] complications Plan of Treatment Future Appointment(s):07/14/2019 10:15 am - Farzaneh Daniel MD at Zacwuj2204/08 - Farzaneh Daniel MDE66.9 Obesity, yhoiycyyhxkU98.818 Encounter for other preprocedural cpuzfqzjacwI66.9 Type 2 diabetes mellitus without complicationsFollow up:3-4 mos as AWV/EV/PE cancel 05/05I10 Essential ( primary) hxmaqwgpbqczM56.9 Vitamin D deficiency, utgsqwaqldnX77.2 Mixed bjnylguprpwmbjL49.21 Adjustment disorder with depressed moodG47.33 Obstructive sleep apnea (adult) (pediatric)Z68.39 Body mass index (BMI) 39.0-39.9, adult Functional Status Description No Information Available Mental Status Description No Information Available Referrals Refer to Reason for Referral Status Appt Date Sarah Mohamud DR BILATERAL KNEE PAIN 01/01-SCHEDULED WITH [facility]. Closed 01/2019 LVM ADVISING AND MAILED [place] [facility] [address] [phone]
--- OUTSIDE RECORDS SUMMARY | 2019-05-02 06:23 | XMS REPORT | Continuity of Care Document ---
:1945 External Reference #:[id number] Author Name aSrah Mohamud M.D. 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 Onset: 03/03/2019 Localized, primary osteoarthritis Sarah Mohamud M.D. Onset: 01/20/2019 Social History Type Date Description Comments Sex Unknown ETOH Use Denies alcohol use Tobacco Use Start: Unknown Patient has never smoked Smoking Status Reviewed: 04/21/19 Patient has never smoked Exercise Type/Frequency Does not exercise Allergies, Adverse Reactions, Alerts Description No Known Drug Allergies Medications Active Medications SIG Qnty Indications Ordering Provider Date Atorvastatin Calcium 1 tablet by Farzaneh Daniel 20mg mouth daily MMD Gerardo Tablets Amlodipine Besylate 1 by mouth daily Farzaneh Daniel 5mg MMD Gerardo Tablets Ozempic Farzaneh Daniel 0.25or 0.5 mg/Dose MMD Gerardo Solution Pen-Inject Metformin HCL ER 1/2 tablet by Farzaneh Daniel 500mg mouth daily MMD Gerardo Tablets ER 24HR Duloxetine HCL 1 tablet by Farzaneh Daniel 60mg Caps DR mouth daily MMD Gerardo Part Lisinopril 1 by mouth every Unknown 10mg Tablets day History Medications Keflex 1 tab by mouth 4 28caps Vincent Power MD 02/22/2019 - 500mg Capsules times daily x 7 03/02/2019 days Percocet 1 - 2 tabs by 60tabs Sarah Mohamud M.D. 02/21/2019 - 5-325mg Tablets mouth every 4 - 6 04/14/2019 hours as needed for pain. pt on this dose in the hospital Eliquis take 1 tab twice 60tabs Sarah Mohamud M.D. 02/21/2019 - 2.5mg Tablets a day x 30 days 04/14/2019 Ciprofloxacin HCL 1 tab by mouth 20tabs Vincent Power MD 02/12/2019 - 500mg twice daily x 10 04/14/2019 Tablets days Immunizations Description No Information Available Vital Signs Date Vital Result Comment 04/21/2019 1:35pm Height 66 inches 5'6" Weight 239.00 lb Heart Rate 110 /min BP Systolic Sitting 132 mmHg BP Diastolic Sitting 80 mmHg Respiratory Rate 18 /min Body Temperature 97.9 F Pain Level 6 BMI (Body Mass Index) 38.6 kg/m2 03/17/2019 2:21pm Height 66 inches 5'6" Weight 243.00 lb Heart Rate 88 /min BP Systolic 128 mmHg BP Diastolic 80 mmHg Respiratory Rate 16 /min Body Temperature 98.2 F Pain Level 3 BMI (Body Mass Index) 39.2 kg/m2 Results Test Acquired Date Facility Test Result H/L Range Note Urinalysis Profile 02/10/2019 [facility] Urine Color Yellow [address] [place] [address] [phone] Urine Appearance Cloudy Urine Specific [place] 1.017 Normal 1.010-1.030 Urine pH 5.0 Normal [...] Epithelial Cell Present Abnormal Absent Inr/Protime 02/10/2019 [facility] Inr 1.08 Normal 0.82-1.09 1 [address] [place] [address] [phone] Laboratory test 02/10/2019 [facility] Partial 36.7 Normal 26.0 -38.0 finding [address] [facility] [place] [address] Time PTT [phone] Type & Screen 02/10/2019 [facility] Patient O Positive [address] [place] [address] [phone] Antibody Screen NEGATIVE Comp Metabolic 02/10/2019 [facility] Sodium 136 mmol/L Normal 135-[address] [place] [address] [phone] Potassium 3.9 mmol/L Normal 3.5-5.0 Chloride 99 [...] Egfr 98.1 >60 2 CBC Auto 02/10/2019 [facility] White Blood 10.9 10^3/uL High 3.5-10.[address] [place] [address] [phone] Red Blood Count 4.74 10^6/uL Normal 4.18-5.48 [...] Cells % 0.1 Urine Culture And 02/10/2019 [facility] Urine Culture SEE RESULT [address] [place] [address] [phone] 1 Standard intensity warfarin therapeutic range: 2.0-3.0 [...] 3 SEE RESULT BELOW Name: FREDRICK KENNEDY Randy : [address]: Sarah Mohamud MD Acct: [id number] Unit: [id number] AGE: 73 Location: PAT Re02/10/19 SEX: M Status: REG REF SPEC: [id number] BERENICE: 02/10/19-[address] [facility] [address]: Sarah Mohamud MD REQ: [id number] RECD: 02/10/19 STATUS: COMP _ SOURCE: URINE SPDESC: ORDERED: Urine Culture QUERIES: Urine Source: Clean Catch Procedure Result Reported Site Urine Culture Final 02/12/19- 933 ML Organism 1 PSEUDOMONAS AERUGINOSA [place] Count 25-50,000 (Moderate) CFU/ML 1. PSEUDOMONAS AERUGINOSA [facility] RX --------- ------ Cefazolin >=64 R Cefepime <=1 S Ciprofloxacin <=0.25 S Gentamicin <=1 S Levofloxacin 0.5 S Meropenem <=0.25 S Pipercillin/Tazobactam <=4 S Contact the Microbiology Department for any additional antibiotic reporting. * - Main Lab . END OF REPORT DEPARTMENT OF PATHOLOGY, [address] [place] [address] Andrew Garsia M.D. Director [facility] # [id number] Procedures Date Code Description Status 02/20/2019 80638 TKR Total Knee Replacement Completed 02/20/2019 25885 TKR Total Knee Replacement Completed Medical Devices Description No Information Available Encounters Type Date Location Provider Dx Diagnosis Office Visit 03/17/2019 [facility] Sarah Mohamud, Z96.652 Presence of left 2:15p at [facility].D. artificial knee joint M25.561 Pain in right knee M25.461 Effusion, right knee M17.11 Unilateral primary osteoarthritis, right knee Z47.1 Aftercare following joint replacement surgery Office Visit 02/22/2019 1:09p [facility] Sofi [facility],pc MD [place] (primary) Hospitalists hypertension Office Visit 02/20/2019 1:09p [facility] Marlen Won, [facility],pc [employer] (primary) Hospitalists hypertension E11.9 Type 2 diabetes mellitus without complications G47.33 Obstructive sleep apnea (adult) (pediatric) E78.5 Hyperlipidemia, unspecified Office Visit 01/20/2019 3:00p [facility] Sarah Mohamud, M25.561 Pain in right at [place] M.D. knee M25.562 Pain in left knee M25.462 Effusion, left knee M25.461 Effusion, right knee M17.0 Bilateral primary osteoarthritis of knee Assessments Date Code Description Provider 04/21/2019 M25.561 Pain in right knee Sarah Mohamud M.D. 04/21/2019 M25.461 Effusion, right knee Sarah Mohamud M.D. 04/21/2019 M17.11 Unilateral primary osteoarthritis, right knee Sarah Mohamud M.D. 03/17/2019 Z96.652 Presence of left artificial knee joint Sarah Mohamud M.D. 03/17/2019 M25.561 Pain in right knee Sarah Mohamud M.D. 03/17/2019 M25.461 Effusion, right knee Sarah Mohamud M.D. 03/17/2019 M17.11 Unilateral primary osteoarthritis, right knee Sarah Mohamud M.D. 03/17/2019 Z47.1 Aftercare following joint replacement surgery Sarah Mohamud M.D. 03/03/2019 Z47.1 Aftercare following joint replacement surgery Sarah Mohamud M.D. 03/03/2019 Z96.652 Presence of left artificial knee joint Sarah Mohamud M.D. 03/03/2019 M25.562 Pain in left knee Sarah Moahmud M.D. 03/03/2019 M25.462 Effusion, left knee Sarah Mohamud M.D. 02/22/2019 [facility] (primary) hypertension Sofi Bull MD 02/20/2019 [facility] (primary) hypertension Marlen Won, [employer]GER 02/20/2019 M17.12 Unilateral primary osteoarthritis, left knee VINI Monzon 02/20/2019 E11.9 Type 2 diabetes mellitus without Marlen Won, [employer] complications 02/20/2019 M17.12 Unilateral primary osteoarthritis, left knee Sarah Mohamud M.D. 02/20/2019 G47.33 Obstructive sleep apnea (adult) (pediatric) Marlen Won, [employer]GER 02/20/2019 E78.5 Hyperlipidemia, unspecified Marlen Won, [employer] MANAGER 02/10/2019 M25.562 Pain in left knee Sarah [...] Sarah Mohamud M.D. Plan of Treatment Future Appointment(s):05/19/2019 2:45 pm - Sarah Mohamud M.D. at [facility] at Ifuxdy3905/02/2019 8:30 am - VINI Monzon at [facility] at Qmiqgb4705/02/2019 8:30 am - Sarah Mohamud M.D. at [facility] at Jkdjkc8304/21/2019 - Sarah Mohamud M.D.M25.561 Pain in right kneeFollow up:Follow up: 2 weeks after ynhqqdgY49.461 Effusion, right kneeM17.11 Unilateral primary osteoarthritis, right knee Functional Status Description No Information Available Mental Status Description No Information Available Referrals Description No Information Available
--- OUTSIDE RECORDS SUMMARY | 2019-05-02 06:23 | XMS REPORT | Continuity of Care Document ---
:1945 External Reference #:[id number] Author Name Farzaneh Daniel MD (transmitted by agent of provider Dolores Santos) Address [address] [place] [address] Problems Active Problems Provider Date Type 2 [...] 30tabs E78.2 Farzaneh Daniel 2018 day MD [facility] 20mg Tablets Ozempic 0.5 sc every week 1.500ml E11.9 Farzaneh Daniel 08/20/2018 0.25or 0.oJssy Chakraborty MD mg/Dose Solution Pen-Inject Lisinopril-Hydrochlor 1/2 by mouth 90tabs I10 Farzaneh Daniel 08/20/2018 othiazide every day MD [facility] 20-25mg Tablets Amlodipine Besylate 1 by mouth every 90tabs I10 Farzaneh Daniel 2018 5mg day MD [facility] Tablets Fluticasone 2p bilat nares 9.900ml H68.002 Farzaneh Daniel 04/30/2018 Propionate Nasal every day-gave MD [facility] [place] sample 50mcg/Act Suspension Shingrix 2 shot series 2units [facility] 12/18/2017 50mcg MD [facility] Suspension Rec Duloxetine HCL 1 by mouth twice 60caps M17.0 [facility] 11/06/2017 60mg a day MD [facility] Caps DR Part Aspirin Enteric 1 by mouth every E78.2 [facility] 03/06/2017 Coated Adult Low day MD [facility] Strength 81mg Tablets Knee Sleeeliazar/Open large dx: bilat 2units M17.0 [facility] 12/14/2015 Patella/Medium/Neopre OA MD [facility] ne Misc Coenzyme Q-10 2 by mouth every E78.2 [facility] 10/22/2015 100mg day MD [facility] Capsules Freestyle Lite Test for fsbg's bid 1Box E11.9 [facility] 03/05/2012 Strips MD [facility] Lancets for fsbg's 1Box E11.9 [facility] 03/05/2012 MD [facility] Vitamin D3 1 po qd E55.9 [facility] 10/08/2009 2000Unit MD [facility] Capsules Cpap heated pressure G47.33 [facility] 07/31/2007 10CM MD [facility] dx: beth Metformin HCL ER take two tablets 360tabs E11.9 [facility] 2006 500mg by mouth qavivian Chakraborty MD Tablets ER 24HR Medications Administered in Office Medication SIG Qnty Indications Ordering Provider Date Depo Medrol 80 MG Farzaneh Daniel MD 01/04/2016 Injection Immunizations CPT Code Status Date Vaccine Lot # [id number] Given 04/08/2019 Influenza Virus Vaccine,Quadrivalent,Split,Preserv [id number] Free, 0.5mL,[place] [address] Given 02/19/2018 Influenza Vac, Quadrivalent, Split, 0.5mL Dosage, [id number] Im Use 21708 Given 03/06/2017 Influenza Vac, Quadrivalent, Split, 0.5mL Dosage, [id number] Im Use 78900 Given 03/06/2016 Influenza Vac, Quadrivalent, Split, 0.5mL Dosage, [id number] Im Use 49936 Given 01/04/2016 Tdap (Adacel) Ages 7 And Above Only [id number] 75009 Given 04/27/2015 Influenza Vac, Quadrivalent, Split, 0.5mL Dosage, [id number] Im Use 35171 Given 08/04/2014 Prevnar 13 Pneumococal Conjugate Vaccine [id number] Q2038 Given 03/16/2014 Fluzone Trivalent Immunization [id number] Q2038 Given 03/17/2013 Fluzone Trivalent Immunization 59510 Given 06/12/2012 Pneumococcal 23 Immunization Adult Or [id number] Immunosuppressed Patient Vital Signs Date Vital Result [...] 0.0-0.5 Abs Basophils 0.1 K/uL 0.0-0.3 Basic ([facility]) 02/04/2019 [facility] Sodium 138 mmol/L 135-146 2 Potassium 4.4 mmol/L 3.5-5.2 Chloride# 95 mmol/L Low 97-110 3 Carbon Dioxide 26 mmol/L 24-34 Glucose 98 mg/dL 70-105 BUN 17 mg/dL 6-26 Creatinine 0.9 mg/dL 0.5-1.4 Calcium 10.0 mg/dL 8.5-10.5 4 Female Egfr 61 >60 5 Male Egfr 81 >60 6 Anion Gap 17 mmol/L High 5-15 7 Basic ([facility]) 01/17/2019 [facility] Sodium 138 mmol/L 135-146 8, [...] 25 61 ng/mL 30-100 17 Hydroxy [facility] ([facility]) 11/04/2018 [facility] Sodium 139 mmol/L 135-146 18 [...] Range Procedures Date Code Description Status 04/08/2019 09857 Electrocardiogram Complete Completed 02/04/2019 29977 Electrocardiogram Complete Completed Medical Devices Description No Information Available Encounters Type Date Location Provider Dx Diagnosis Office Visit 02/04/2019 Farzaneh Sanchez E66.9 Obesity, unspecified 11:30a MD [facility] Z01.818 Encounter for other preprocedural examination I10 Essential (primary) hypertension E11.9 Type 2 diabetes mellitus without complications Z68.38 Body mass index (BMI) 38.0-38.9, adult Office Visit 01/17/2019 10:00a Farzaneh Sanchez E66.9 Obesity, unspecified MD [facility] E11.9 Type 2 diabetes mellitus without complications I10 Essential (primary) hypertension M17.0 Bilateral primary osteoarthritis of knee E78.2 Mixed hyperlipidemia F43.21 Adjustment disorder with depressed mood M48.07 Spinal stenosis, lumbosacral region E55.9 Vitamin D deficiency, unspecified Z68.38 Body mass index (BMI) 38.0-38.9, adult Office Visit 11/04/2018 8:45a Farzaneh Sanchez E66.9 Obesity, unspecified MD [facility] E11.9 Type 2 diabetes mellitus [...] 10:15 am - Farzaneh Daniel MD at Iqcufc0104/08 - Farzaneh Daniel MDE66.9 Obesity, lrzujrgezgsA54.818 Encounter for other preprocedural khokashwcciF71.9 Type 2 diabetes mellitus without complicationsFollow up:3-4 mos as AWV/EV/PE cancel 05/05I10 Essential ( primary) wpwozeupkyzeC34.9 Vitamin D deficiency, wavykrdzhbgS74.2 Mixed sebbxapcclaavqQ69.21 Adjustment disorder with depressed moodG47.33 Obstructive sleep apnea (adult) (pediatric)Z68.39 Body mass index (BMI) 39.0-39.9, adult Functional Status Description No Information Available Mental Status Description No Information Available Referrals Refer to Reason for Referral Status Appt Date Sarah Mohamud DR BILATERAL KNEE PAIN 01/01-SCHEDULED WITH [facility]. [facility] 01/2019 LVM ADVISING AND [place] [address] [phone]
--- OUTSIDE RECORDS SUMMARY | 2019-05-02 06:24 | XMS REPORT | Continuity of Care Document ---
:1945 External Reference #:[id number] Author Name Sarah Mohamud M.D. (transmitted by agent of provider Anum Del Rio) Address [address] [facility] [address] [place] [address] Care Team Providers Name Role Phone Farzaneh Daniel MD - Internal Care Team Information Prior Authorization Technician Medicine Problems Active Problems Provider Date Localized, primary osteoarthritis Sarah Mohamud M.D. Onset: 01/20/2019 Social History Type Date Description Comments Sex Unknown ETOH Use Denies alcohol use Tobacco Use Start: Unknown Patient has never smoked Smoking Status Reviewed: 03/03/19 Patient has never smoked Exercise Type/Frequency Does not exercise Allergies, Adverse Reactions, Alerts Description No Known Drug Allergies Medications Active Medications SIG Qnty Indications Ordering Date Provider Percocet 1 - 2 tabs by 60tabs Sarah Mohamud, 02/21/2019 5-325mg Tablets mouth every 4 - 6 M.D. hours as needed for pain. pt on this dose in the hospital [facility] take 1 tab twice 60tabs Sarah Mohamud, 02/21/2019 2.5mg Tablets a day x 30 days M.D. Ciprofloxacin HCL 1 tab by mouth 20tabs Vincent Tono, 02/12/2019 500mg twice daily x 10 MD Tablets days Atorvastatin Calcium María, Farzaneh 20mg M., Tablets Lisinopril-Hydrochloro María, Farzaneh thiazide MMD Gerardo 20-25mg Tablets Amlodipine Besylate María, Farzaneh 5mg M., Tablets Ozempic María, Farzaneh 0.25or 0.5 MMD Gerardo mg/Dose Solution Pen-Inject Metformin HCL ER Farzaneh Daniel 500mg MD Emma Tablets ER 24HR History Medications Keflex 1 tab by mouth 4 28caps Vincent Power MD 02/22/2019 - 500mg Capsules times daily x 7 03/02/2019 days Immunizations Description No Information Available Vital Signs Date Vital Result Comment 03/03/2019 4:10pm Height 66 inches 5'6" Weight 243.00 lb Heart Rate 108 /min BP Systolic Sitting 130 mmHg BP Diastolic Sitting 76 mmHg Respiratory Rate 18 /min Body Temperature 99.7 F Pain Level 5 O2 % BldC Oximetry 94 % BMI (Body Mass Index) 39.2 kg/m2 02/10/2019 11:55am Height 66 inches 5'6" Weight 243.00 lb Heart Rate 128 /min BP Systolic 138 mmHg BP Diastolic 84 mmHg Body Temperature 99.0 F Pain Level 6 BMI (Body Mass Index) 39.2 kg/m2 Results Test Date Facility Test Result H/L Range Note Urinalysis Profile 02/10/2019 [facility] Urine Color Yellow [address] [place] [address] [phone] Urine Appearance Cloudy Urine Specific [place] 1.017 Normal 1.010-1.030 Urine pH 5.0 Normal [...] Epithelial Cell Present Abnormal Absent Inr/Protime 02/10/2019 [facility] Inr 1.08 Normal 0.82-1.[address] [place] [address] [phone] Laboratory test 02/10/2019 [facility] Partial 36.7 Normal 26.0 -38.[address] [place] [address] Time PTT [phone] Type & Screen 02/10/2019 [facility] Patient O Positive [address] [place] [address] [phone] Antibody Screen NEGATIVE Comp Metabolic 02/10/2019 [facility] Sodium 136 mmol/L Normal 135-145 Panel [address] [facility] [address] [phone] Potassium 3.9 mmol/L Normal 3.5-5.0 Chloride 99 [...] Egfr 98.1 >60 2 CBC Auto 02/10/2019 [facility] White Blood 10.9 10^3/uL High 3.5-10.[address] [place] [address] [phone] Red Blood Count 4.74 10^6/uL Normal 4.18-5.48 [...] Cells % 0.1 Urine Culture And 02/10/2019 [facility] Urine Culture SEE RESULT [address] [place] [address] [phone] 1 Standard intensity warfarin therapeutic range: 2.0-3.0 [...] (or dialysis) 3 SEE RESULT BELOW Name: REGINO KENNEDY Randy : [address]: Sarah Mohamud MD Acct: [id number] Unit: [id number] AGE: 73 Location: [facility] Re02/10/19 SEX: M Status: REG REF SPEC: [id number] BERENICE: 02/10/[address] [facility] [address]: Sarah Mohamud MD REQ: [id number] RECD: 02/10/19 STATUS: COMP _ SOURCE: URINE SPDESC: ORDERED: Urine Culture QUERIES: Urine Source: Clean Catch Procedure Result Reported Site Urine Culture Final 02/12/19- 09 ML Organism 1 PSEUDOMONAS AERUGINOSA [place] Count 25-50,000 (Moderate) CFU/ML 1. PSEUDOMONAS AERUGINOSA [facility] RX --------- ------ Cefazolin >=64 R Cefepime <=1 S Ciprofloxacin <=0.25 S Gentamicin <=1 S Levofloxacin 0.5 S Meropenem <=0.25 S Pipercillin/Tazobactam <=4 S Contact the Microbiology Department for any additional antibiotic reporting. * ML - Main Lab . END OF REPORT DEPARTMENT OF PATHOLOGY, [address] [place] [address] Andrew Garsia M.D. Director [facility] # [id number] Procedures Date Code Description Status 02/20/2019 36657 TKR Total Knee Replacement Completed 02/20/2019 13827 TKR Total Knee Replacement Completed Medical Devices Description No Information Available Encounters Type Date Location Provider Dx Diagnosis Office Visit 02/22/2019 [facility] Sofi Bull, I10 Essential ( primary) 1:09p alejandro Coulter MD hypertension Hospitalists Office Visit 02/20/2019 [facility] Marlen Won, OSTEOLOGY TEACHER I10 Essential ( primary) 1:09p alejandro Coulter hypertension Hospitalists E11.9 Type 2 diabetes mellitus without complications G47.33 Obstructive sleep apnea (adult) (pediatric) E78.5 Hyperlipidemia, unspecified Office Visit 01/20/2019 3:00p [facility] Sarah Mohamud, M25.561 Pain in right at [place] M.D. knee M25.562 Pain in left knee M25.462 Effusion, left knee M25.461 Effusion, right knee M17.0 Bilateral primary osteoarthritis of knee Assessments Date Code Description Provider 02/22/2019 I10 Essential (primary) hypertension Sofi Bull MD 02/20/2019 [facility] Essential (primary) hypertension Marlen Won, OSTEOLOGY TEACHER 02/20/2019 M17.12 Unilateral primary osteoarthritis, left knee VINI Monzon 02/20/2019 E11.9 Type 2 diabetes mellitus without Marlen Won, OSTEOLOGY TEACHER complications 02/20/2019 M17.12 Unilateral primary osteoarthritis, left knee Sarah Mohamud M.D. 02/20/2019 G47.33 Obstructive sleep apnea (adult) (pediatric) Marlen Won, OSTEOLOGY TEACHER 02/20/2019 E78.5 Hyperlipidemia, unspecified Marlen Won, OSTEOLOGY TEACHER 02/10/2019 M25.562 Pain in left knee Sarah [...] Sarah Mohamud M.D. Plan of Treatment Future Appointment(s):03/17/2019 2:15 pm - Sarah Mohamud M.D. at [facility] Functional Status Description No Information Available Mental Status Description No Information Available Referrals Description No Information Available
[2019-05-02] MEDS ORDERED: ceFAZolin 2 GM in NS PREMIX(*) 2 GM/100 ML BAG IVPB ONE (06:53)
[2019-05-02] MEDS ORDERED: Propofol* 10 MG/ML 20 ML BTL ONE (07:56)
[2019-05-02] MEDS ORDERED: Lidocaine 2% PF * 5 ML VIAL ONE (07:56)
[2019-05-02] MEDS ORDERED: Rocuronium* 10 MG/ML VIAL ONE ×2 (07:57→10:56)
[2019-05-02] MEDS ORDERED: Midazolam* 1 MG/ML 2 ML VIAL (2 MG) ONE ×2 (07:57→09:49)
[2019-05-02] MEDS ORDERED: fentaNYL* 50 MCG/ML 2 ML VIAL (100 MCG VIAL) ONE (07:57)
[2019-05-02] MEDS ORDERED: ROPIVACAINE 5 MG/ML 30 ML BTL (0.5%) ONE ×2 (07:59→08:10)
[2019-05-02] MEDS ORDERED: Dexmedetomidine* 200 MCG/2 ML 2 ML VIAL ONE (07:59)
[2019-05-02] MEDS ORDERED: Lidocaine 1% INJ* 10 MG/ML 30 ML SDV ONE (08:05)
[2019-05-02] MEDS ORDERED: Dexamethasone IV* 4 MG/ML 1 ML (4 MG) ONE (10:30)
[2019-05-02] MEDS ORDERED: Ondansetron INJ* 2 MG/ML VIAL ONE (10:32)
[2019-05-02] MEDS ORDERED: Ketorolac INJ* 30 MG/ML 1 ML VIAL ONE (10:32)
[2019-05-02] MEDS ORDERED: Metoclopramide IV* 5 MG/ML 2 ML VIAL ONE (10:32)
[2019-05-02] MEDS ORDERED: Phenylephrine 10 MG/ML VIAL* 1 ML VIAL ONE (10:43)
[2019-05-02] MEDS ORDERED: Naloxone* 0.4 MG/ML 1 ML VIAL IV PRN (10:53)
[2019-05-02] MEDS ORDERED: DiMENhydriNATE IV* 50 MG/ML VIAL IV PUSH PRN (10:53)
[2019-05-02] MEDS ORDERED: Acetaminophen IV 1GM/100ML * 100 ML ONE (11:23)
[2019-05-02] MEDS ORDERED: Sugammadex * 200 MG/2 ML VIAL IV PUSH ONE (11:36)
[2019-05-02] MEDS ORDERED: HYDROmorphone INJ1* 1 MG/ML SYRINGE ONE ×2 (12:00→12:28)
[2019-05-02] MEDS ORDERED: Magnesium Hydroxide LIQ* 30 ML UDC PO PRN (12:13)
[2019-05-02] MEDS ORDERED: diPHENhydraMINE IV* 50 MG/ML 1 ml VIAL (BENADRYL) IV PRN (12:13)
[2019-05-02] MEDS ORDERED: Polyethylene Glycol 3350* 17 GM PACKET PO PRN (12:13)
[2019-05-02] MEDS ORDERED: diPHENhydraMINE PO* 25 MG PO PRN (12:13)
[2019-05-02] MEDS ORDERED: Ondansetron ODT TAB* 4 MG PO PRN (12:13)
[2019-05-02] MEDS ORDERED: Ondansetron INJ* 2 MG/ML VIAL IV PRN (12:13)
[2019-05-02] MEDS ORDERED: Ondansetron TAB* 4 MG PO PRN (12:13)
[2019-05-02] MEDS ORDERED: Cyclobenzaprine TAB* 10 MG PO PRN (12:13)
[2019-05-02] MEDS ORDERED: Morphine INJ* 2 MG/ML 1 ML SYRINGE (TWO MG - NEW SYRINGE VERSION) IV PRN (12:13)
[2019-05-02] MEDS: HYDROmorphone INJ1* 1 MG/ML SYRINGE IV PRN ×5 (12:28→14:24)
[2019-05-02] MEDS ORDERED: oxyCODONE TAB* 5 MG TAB ONE (12:45)
[2019-05-02] MEDS: oxyCODONE TAB* 5 MG TAB PO PRN ×2 (12:46→12:47)
--- NOTE | 2019-05-02 13:38 | PN ---
Progress Note - Progress Note Date of Service: 05/02/19 Note: resting comfortably in recovery. pain well controlled; able to DF/PF, 2+ DP pulse and intact sensation; dressing c/d/i
[2019-05-02] MEDS: Acetaminophen TAB* 325 MG PO SCH ×2 (14:38→22:44)
[2019-05-02] MEDS ORDERED: traMADol TAB* 50 MG ONE (14:48)
[2019-05-02] MEDS: traMADol TAB* 50 MG PO PRN (14:49)
[2019-05-02] MEDS: Lactated Ringers 1000 ML Bag* 1,000 ML IV SCH (15:30)
--- NOTE | 2019-05-02 16:29 | OP ---
Operative Report - Blank - Operative Report Date of Operation: 05/02/19 Note: FREDRICK KENNEDY 1945 Date of Surgery: 05/02/19 Sarah Mohamud MD Wood Lather: Alex MARTINI did help throughout the procedure with preparation of the knee, wound retraction, manipulation of the knee, and wound closure. Anesthesiologist: Samantha Seymour MD Anesthesia Type: Spinal Preoperative Diagnosis: Right severe degenerative osteoarthritis of the knee Postoperative Diagnosis: As above Procedure Performed: Right Total Knee Arthroplasty Tourniquet time: 51 minutes Complications: None Specimen: Bone and cartilage from the right knee joint sent to pathology. Hardware Used: Cemented Gomez [employer] Nephew total knee hardware was used - For the femur a size 6 right legion posterior stabilized femoral component, for the tibia a size 5 right filippo II tibial baseplate, for the insert a size 9mm 5-6 posterior stabilized articular polyethylene insert, and for the patella a size 35 3-peg all poly patella. Brief History/Indication: FREDRICK KENNEDY was known in clinic and had a history of severe right knee pain and swelling. He failed conservative treatment with anti- inflammatories, pain pills, intra-articular injections and physical therapy. He elected to undergo right total knee arthroplasty due to continued pain and decreased quality of life. Radiographs showed severe end stage osteoarthritis of the knee with bone on bone contact. Informed consent was obtained from the patient. He understood the risks of surgery included but were not limited to: bleeding, infection, damage to nearby structures, intraoperative fracture, nerve palsy, failure of the hardware, early loosening, knee stiffness or loss of motion, anesthesia complications, stroke, heart attack, blood clot and . He wished to proceed. Intra-Operative Findings: Intraoperatively the patient was noted to have severe loss of cartilage in all 3 compartments of the knee. Description of the Procedure: FREDRICK KENNEDY was identified in the preanesthesia unit. His right knee was marked as the correct operative side. Informed consent was signed and placed in the chart. The patient was taken to the operating room and placed under anesthesia without complication. A argueta catheter was placed. A tourniquet was placed on the right thigh. The right lower extremity was prepped and draped in the usual sterile fashion. Preoperative time-out was made to correctly identify the patient, side and site. Appropriate intraoperative antibiotics were given within one hour of incision. Tourniquet was inflated. A midline incision was made and carried sharply down to the extensor mechanism. A new 10 blade was used to make a standard medial parapatellar arthrotomy. The patella was subluxed laterally. Electrocautery was used to dissect soft tissue off the superomedial tibia to the midsagittal plane. The knee was flexed up. The anterior horn of the lateral meniscus and the ACL were sharply incised. A drill was used to enter the distal femur. The intramedullary distal femoral cutting guide was pinned on the distal femur. The oscillating saw was used to make the distal femoral cut. The external rotation guide was pinned on the distal femur and the distal femur was sized to a size 6. The size 6 multi-cutting jig was pinned on the distal femur. The oscillating saw was used to make the appropriate 4 chamfer cuts. Next the PCL was completely released. The extramedullary tibial cutting guide was pinned on the proximal tibia and the oscillating saw was used to make the proximal tibial cut perpendicular to the mechanical axis of the tibia. The bone was carefully removed. The knee was brought out into full extension. The spacer block was placed and had excellent fit with the knee in full extension. The medial and lateral ligaments were well balanced. The flexion and extension gaps were well balanced. The knee was flexed up. Lamina reproductive healthcare assistant was placed both medially and laterally. Any remaining meniscus was removed with electrocautery. Curved osteotome was used to remove any posterior osteophytes. The tibial tray and drop emmett were placed and confirmed a satisfactory tibial cut. The size 6 right femoral trial was impacted onto the distal femur. This trial had excellent fit and stability. The box for the posterior stabilized implant was prepared using a box cut osteotome and a reamer. Next a tibial tray trial and 9 mm insert trial was placed. The knee was taken through a range of motion and had full extension to 130 degrees of flexion. Patellofemoral tracking was satisfactory. The patella was inverted and sized to a size 35. Three peg holes were drilled through the size 35 drill guide. The trial patella was placed and the knee was taken through a range of motion. There was satisfactory patellofemoral tracking. All trials were removed. The tibia was subluxed anteriorly and sized to a size 5. The proximal tibial was prepared with a size 5 keel punch. All bony cut surfaces were irrigated with sterile saline and dried. Final implants were cemented into place starting with the tibia, followed by the femur, and last the patella. A 9 mm insert trial was placed and the knee was brought into full extension. Tourniquet was turned down and the knee was copiously irrigated with sterile saline. Electrocautery was used to obtain meticulous hemostasis. Once the cement had fully cured, the insert trial was removed. Any excess cement was removed from around the hardware and capsule. Final insert chosen was a 9 mm posterior stabilized Filippo II articular insert size 5-6. Stability of the insert was checked and noted to be stable. The extensor mechanism was closed using number 1 vicryls. The rest of the incision was closed in a layered fashion using 0 and 2-0 vicryls. The skin was closed using 3-0 nylon suture. Sterile xeroform, 4x4s and webril were used to cover the incision. Colin wrap and cold pack were used to cover the dressings. The patients anesthesia was reversed without difficulty. He was taken to the PACU in stable condition. Intended weight-bearing will be as tolerated.
[2019-05-02] MEDS ORDERED: Dextrose 50% VIAL 50 ml IV PUSH PRN (17:33)
[2019-05-02] MEDS: ceFAZolin 1 GM ADVAN(*) 1 GM in NS 0.9% 50 ML* 50 ML IVPB SCH (18:10)
[2019-05-02] MEDS: oxyCODONE/Acetamin 5/325 MG* TAB PO PRN ×2 (18:11→22:44)
[2019-05-02] MEDS: Insulin LISPRO* 1 UNITS UNIT SUBCUT SCH (18:16)
--- NOTE | 2019-05-02 19:38 | CONS ---
HOSPITAL MEDICINE CONSULTATION REPORT: DATE OF CONSULT: 05/02/19 PROVIDER: Betzaida Thrasher NP ATTENDING PHYSICIAN: Sarah Mohamud MD CONSULTING PHYSICIAN: Dr. Win Colon (dictated by Betzaida Thrasher NP). REASON FOR CONSULT: Co-management of chronic medical conditions. HISTORY OF PRESENT ILLNESS: Mr. John is a 73-year-old male with a past medical history significant for diabetes, hypertension, hyperlipidemia, vitamin D deficiency, obstructive sleep apnea, history of TIA, who presented to [facility] for an elective right total knee arthroplasty with Dr. Mohamud. Please see dictated H and P from VINI Wilson for complete details. In brief, the patient had ongoing lexie n and failed conservative measures, therefore opted for an elective right total knee arthroplasty wit Dr. Mohamud. In the immediate preoperative period, the patient had no complaints. Postoperatively, the patient has no complaints other than mild right knee pain. Due to the patient's history of hyper tension and diabetes, Hospital Medicine was asked to help co-manage his care during this hospitalizat ion. PAST MEDICAL HISTORY: Significant for: 1. Type 2 diabetes. 2. Hypertension. 3. Hyperlipidemia. 4. Vitamin D deficiency. 5. Obstructive sleep apnea. 6. TIA. PAST SURGICAL HISTORY: 1. Appendectomy. 2. Carpal tunnel release. 3. Cholecystectomy. 4. Right total knee. 5. Right triceps repair. HOME MEDICATIONS: Include: 1. Atorvastatin 20. 2. Lisinopril 10 mg p.o. daily. 3. Amlodipine 5 mg. 4. Metformin 1000 mg p.o. daily. 5. Duloxetine 60 mg p.o. daily. 6. Aspirin 81 mg p.o. daily. 7. Fluticasone 50 mcg daily. 8. Ozempic 0.5 subcu on Tuesdays. ALLERGIES: No known drug allergies. FAMILY HISTORY: Mother with an [place] in her 60s. Mother with diabetes. No reported history of cancer. SOCIAL HISTORY: The patient denies any smoking or illicit drug use. He does report rare alcohol use . Surrogate decision maker in the event he is unable to make his own decisions is his daughter, Yelitza . He wishes to be a DNR. REVIEW OF SYSTEMS: The patient denies any fever, chills, nausea, chest pain, shortness of breath. D enies any nausea, vomiting, diarrhea, or abdominal pain. Denies any cough, hemoptysis, or shortness o f breath. No gross hematuria, dysuria, urinary frequency or urgency, or pain with urination. Denies any dysphagia. Denies any weakness or sensory loss. Denies any visual complaints, arthralgias, myal gias, rashes, lesions, open sores, psychosis or anxiety. He does complain of right knee pain postope ratively. PHYSICAL EXAMINATION: General: At this time, Mr. John is alert and oriented, resting on the stretc her in PACU. He is in no acute distress. Vital Signs: Blood pressure 108/60, heart rate is 90, res pirations 15, O2 saturation 97%, and temperature was 97.1. HEENT: Head is atraumatic, normocephalic . Eyes: EOMs are intact. Sclerae anicteric and not pale. Oral mucosa appeared to be moist. Neck is supple. Lungs are clear to auscultation bilaterally. No wheezes, rales, or rhonchi. Cardiac: S 1, S2. Regular rate and rhythm. No murmurs, rubs, or gallops. Abdomen is soft and nontender. Tony l sounds are present x4. Extremities: He is able to move all 4 extremities. He does have a dressing that is dry and intact to his right knee. Pedal pulses are +2 bilaterally. There is no clubbing or cyanosis. Neurologic: He is awake, alert, oriented x3. Speech is clear. Thought process is intac t. There are no gross focal deficits. Skin: He does have a dressing that is dry and intact to his right knee. DIAGNOSTIC STUDIES/LAB DATA: On 02/10/19, WBCs were 10.9, RBCs 4.74, hemoglobin 12.1, hematocrit was 35, platelet count was 247. INR 1.01. Sodium on 02/21/19 was 134, potassium 4.4, chloride 99, carb on dioxide is 28, anion gap is 6, BUN was 17, creatinine 0.90, glucose was 145, calcium was 8.7. Uri ne on 04/22/19 was within normal limits with the exception of urine protein was 1+, ketones were trac e, squamous epithelial cells were present and calcium oxalate crystals were present. IMPRESSION AND PLAN: Mr. John is a 73-year-old male with a past medical history significant for typ e 2 diabetes, hypertension, hyperlipidemia, vitamin D deficiency, obstructive sleep apnea and transie nt ischemic attack, who presented to the [facility] for an elective right total knee arthroplasty with Dr. Jenn bunch. Our recommendations are as follows: 1. Status post right total knee arthroplasty with Dr. Mohamud. Management per Orthopedics, pain manag ement per Orthopedics, bowel regimen per Orthopedics, PT/OT per Orthopedics, DVT prophylaxis per Orth opedics. 2. Hypertension. I would hold his lisinopril and amlodipine as the patient's systolic blood pressur e is in the low 100s. We will resume this as able. 3. Hyperlipidemia. He should continue on atorvastatin 20 mg as previously prescribed. 4. Type 2 diabetes. I will hold his metformin. I will place him on lispro sliding scale with Accu- Cheks a.c. 5. Depression. He should continue on duloxetine 60 mg p.o. daily. 6. FEN: He can have a regular diet. 7. Code status: The patient wishes to be a DNR. 8. DVT prophylaxis: As per Orthopedics. TIME SPENT: Time spent on this consultation was 45 minutes, greater than half that time was spent at the bedside reviewing the events leading thus far to this hospitalization, performing physical exam, and reviewing my plan of care. I have discussed this with my attending, Dr. Win Colon, he is in agreement with my plan. BETZAIDA THRASHER, ESTEFANY [id number]/[facility] #: [id number]
[2019-05-02] MEDS: Magnesium Hydroxide LIQ* 30 ML UDC PO SCH (22:43)
[2019-05-02] MEDS: DULoxetine DR CAP* 60 MG CAP.DR PO SCH (22:44)
[2019-05-02] MEDS: Docusate CAP* 100 MG PO SCH (22:44)
[2019-05-03] MEDS: Lactated Ringers 1000 ML Bag* 1,000 ML IV SCH (01:17)
[2019-05-03] MEDS: ceFAZolin 1 GM ADVAN(*) 1 GM in NS 0.9% 50 ML* 50 ML IVPB SCH ×2 (02:32→10:02)
[2019-05-03] MEDS: oxyCODONE/Acetamin 5/325 MG* TAB PO PRN ×3 (05:46→16:55)
[2019-05-03] MEDS: Acetaminophen TAB* 325 MG PO SCH ×3 (05:55→22:09)
[2019-05-03 06:20] LABS: Hematocrit 35 % (42-52); Hemoglobin 11.9 g/dL (14.0-18.0); Mean Platelet Volume 7.3 fL (7.4-10.4); Platelet Count 247 10^3/uL (150-450)
[2019-05-03 06:31] LABS: BUN/Creatinine Ratio 28.9 (8-20); Calcium 9.1 mg/dL (8.6-10.3); EGFR African American 100.7 (>60); EGFR Non-African American 83.2 (>60); Potassium 4.9 mmol/L (3.5-5.0)
[2019-05-03] MEDS: Magnesium Hydroxide LIQ* 30 ML UDC PO SCH ×2 (07:55→22:10)
[2019-05-03] MEDS: Docusate CAP* 100 MG PO SCH ×2 (07:55→22:09)
[2019-05-03] MEDS: DULoxetine DR CAP* 60 MG CAP.DR PO SCH ×2 (07:55→22:09)
[2019-05-03] MEDS: Apixaban* 2.5 MG TAB PO SCH ×2 (07:55→22:09)
[2019-05-03] MEDS: Atorvastatin* 20 MG TAB PO SCH (07:55)
[2019-05-03] MEDS: Insulin LISPRO* 1 UNITS UNIT SUBCUT SCH ×3 (07:56→17:02)
[2019-05-03] MEDS: Vitamin THERAPEUTIC TAB PO SCH (07:56)
[2019-05-03] MEDS ORDERED: Lisinopril TAB* 10 MG PO SCH (09:00)
[2019-05-03] MEDS ORDERED: metFORMIN* 1,000 MG TAB PO SCH (09:00)
[2019-05-03] MEDS ORDERED: amLODIPine TAB* 5 MG PO SCH (09:00)
--- NOTE | 2019-05-03 10:32 | PN ---
Progress Note - Progress Note Date of Service: 05/03/19 SOAP: Subjective: [Pt was seen this am laying in bed. States that he is doing well. Pain is well under control. He denies any chest pain, SOB, nausea or vomiting. He is looking forward to going home tomorrow. Choudhary was removed this am and he has not yet urinated or defecated. ] Objective: [General: Pt is alert and oriented x3, NAD MSK, RLE: Dressing is c/d/i, Calf is soft and non tender. NVI, +df/pf, 2+ DP pulse. ] Vital Signs Temp 98.1 F 05/03/19 07:52 Pulse 90 05/03/19 07:52 Resp 16 05/03/19 10:01 BP 101/56 05/03/19 07:52 Pulse Ox 94 05/03/19 07:52 Intake & Output 05/02/19 05/03/19 05/03/19 18:59 06:59 18:59 Intake Total 3500 1845 240 Output Total 650 450 Balance 2850 1395 240 Intake: IV Fluids 3500 990 LR 3500 990 IVPB 55 ABX - CEFAZOLIN 55 Oral 800 240 Output: Choudhary 450 450 Estimated Blood Loss 200 Assessment: [POD 1 RTKA] Plan: [Eliquis x 30 days Continue with current pain medication PT/OT Possible DC tomorrow to home ]
[2019-05-03] MEDS: oxyCODONE TAB* 5 MG TAB PO PRN ×2 (14:34→20:02)
[2019-05-03] MEDS: traMADol TAB* 50 MG PO PRN (22:14)
[2019-05-04] MEDS: oxyCODONE/Acetamin 5/325 MG* TAB PO PRN ×2 (03:28→08:11)
[2019-05-04 05:30] LABS: Hematocrit 32 % (42-52); Mean Platelet Volume 7.5 fL (7.4-10.4); Platelet Count 240 10^3/uL (150-450)
[2019-05-04] MEDS: Acetaminophen TAB* 325 MG PO SCH (05:55)
[2019-05-04 07:51] VITALS: BP 108/63
[2019-05-04] MEDS: Atorvastatin* 20 MG TAB PO SCH (08:10)
[2019-05-04] MEDS: Docusate CAP* 100 MG PO SCH (08:10)
[2019-05-04] MEDS: Magnesium Hydroxide LIQ* 30 ML UDC PO SCH (08:10)
[2019-05-04] MEDS: Insulin LISPRO* 1 UNITS UNIT SUBCUT SCH (08:10)
[2019-05-04] MEDS: Vitamin THERAPEUTIC TAB PO SCH (08:12)
[2019-05-04] MEDS: Apixaban* 2.5 MG TAB PO SCH (08:12)
[2019-05-04] MEDS: DULoxetine DR CAP* 60 MG CAP.DR PO SCH (08:12)
--- NOTE | 2019-05-04 09:44 | PN ---
Progress Note - Progress Note Date of Service: 05/04/19 SOAP: Subjective: [Pt was seen this am laying in bed. States that he is doing well. Pain is well under control. He denies any chest pain, SOB, nausea or vomiting. He is looking forward to going home today. He has been able to urinate. He has been unable to defecate but has been passing gas. ] Objective: [General: Pt is alert and oriented x3, NAD MSK, RLE: Dressing is c/d/i, Dressing changed, incision is c/d/i without drainage or erythema. Calf is soft and non tender. NVI, +df/pf, 2+ DP pulse. ] Vital Signs Temp 97.4 F 05/04/19 07:50 Pulse 103 05/04/19 07:50 Resp 16 05/04/19 08:20 BP 108/63 05/04/19 07:50 Pulse Ox 95 05/04/19 07:50 Intake & Output 05/03/19 05/04/19 05/04/19 18:59 06:59 18:59 Intake Total 1701 1000 Output Total 0 0 Balance 1701 1000 Intake: IV Fluids 1101 ABX - CEFAZOLIN 110 LR 991 Oral 600 1000 Output: Urine 0 0 Other: Estimated Void Medium # Bowel Movements 0 # Voids 1 Assessment: [POD 2 RTKA] Plan: [Jeovany x 30 days Continue with current pain medication PT/OT DC today to home ]
--- NOTE | 2019-05-04 09:51 | DS ---
Orthopedic Discharge Summary - Discharge Summary Date of Admission:05/02/19 Date of Discharge: 05/04/2019 Date of Surgery: 05/02/2019 Attending Orthopedic Provider: Dr. Mohamud Pre-operative Diagnosis: Right knee osteoarthritis Operative Procedure: Right total knee arthroplasty Disposition of Patient: home Condition of Patient: Good History: FREDRICK KENNEDY is a 73 year old M with years of increasingly severe right knee pain. Patient has failed conservative management and has elected to undergo a right total knee replacement Hospital Course: FREDRICK was admitted to [facility] on 05/02/19. Patient underwent a right total knee arthroplasty without complication followed by a brief recovery in PACU and transfer to the Short Stay Surgical Unit in stable condition. Our hospitalist service, physical therapy and occupational therapy also participated in this patients care. Post-op day 1: patient was alert and in no acute distress. Dressing was clean, dry and intact. Operative extremity dorsiflexion and plantarflexion intact, sensation intact to light touch distally, DP2+. Post-op day two: dressing was changed, incision was clean , dry and intact. Patient was deemed to be medically and orthopedically stable for discharge. Physical therapy goals were met. Home Medications Medication Instructions Recorded Confirmed Type Amlodipine Besylate [Norvasc] 5 mg PO QAM 02/10/19 05/02/19 History Aspirin [Aspir-Low] 81 mg PO QAM 02/10/19 05/02/19 History Atorvastatin* [Lipitor 10 MG*] 20 mg PO QAM 02/10/19 05/02/19 History Semaglutide [Ozempic] 0.5 mg SC .QTUES 02/10/19 05/02/19 History metFORMIN* [Glucophage 1000 MG TAB 1,000 mg PO QAM 02/10/19 05/02/19 History *] Lisinopril TAB* [Prinivil TAB 10 10 mg PO QAM #30 tab 02/22/19 05/02/19 Rx MG*] DULoxetine DR JUAREZ* [Cymbalta CAP*] 60 mg PO BID 04/22/19 05/02/19 History Apixaban* [Eliquis*] 2.5 mg PO BID tab 05/04/19 Rx oxyCODONE/Acetamin 5/325 MG* 2 tab PO Q4H PRN tab 05/04/19 Rx [Percocet 5/325 TAB*] Discharge Instructions following Orthopedic Surgery: Activity: * Weight Bearing as tolerated * Continue physical therapy and occupational therapy exercises as shown Wound care: * OK to shower on post-op day 3, no bathing, swimming, or submerging wound. * Use gentle soap, pat dry. Cover with gauze, CHANCE wrap or tape. * Visiting home nurse to do wound checks. Call Orthopedic office for: * Increased drainage * Redness * Increased pain * Fever Go to ER with shortness of breath or chest pain. Diet: * Regular diet * Increase fluids and fiber to prevent constipation. * Continue to use stool softeners, call office if no bowel motion within 48 hours. Medications See Home Medication List in your packet for medications that you should take after discharge. DVT Prophylaxis: Eliquis Dosin.5 mg, 1 tab every 12 hours x 30 days Pain Control: Percocet Dosin/325 mg 1-2 tabs by mouth every 4-6 hours as needed for pain. Maximum of 10 tabs per day. Please note that Percocet contains Tylenol (acetaminophen). Maximum daily dose of Tylenol is 4000 mg from all sources. Antibiotics are required prior to any dental work. FOLLOW UP: Follow up with [[facility]] Within 10-14 days, call for appointment Please call our office with any questions or concerns ([phone])
[2019-05-04] MEDS: oxyCODONE TAB* 5 MG TAB PO PRN (11:04)
[2019-05-04] MEDS ORDERED: Bisacodyl SUPP* 10 MG SUPP PR PRN (12:13)
[2019-05-06] MEDS ORDERED: SEMAGLUTIDE 0.5 MG SC SCH (09:00)
== END 2019-05-04 12:10 | disposition home health service (06) | DRG 470 ==
LOC: AA 06:20 → SSU 12:13
PROVIDERS: ADMIT Orthopaedic Surgery Adult Reconstructive Orthopaedic Surgery; ATTEND Orthopaedic Surgery Adult Reconstructive Orthopaedic Surgery
PROC: 0SR90J9 Replacement of Right Hip Joint with Synthetic Substitute, Cemented, Open Approach (ICD-10-PCS; principal; 2019-05-02 08:30)
DX: M17.11 Unilateral primary osteoarthritis, right knee (principal); I10 Essential (primary) hypertension; E78.00 Pure hypercholesterolemia, unspecified; E11.9 Type 2 diabetes mellitus without complications; Z96.652 Presence of left artificial knee joint; E78.2 Mixed hyperlipidemia; G47.33 Obstructive sleep apnea (adult) (pediatric); M25.761 Osteophyte, right knee; H91.90 Unspecified hearing loss, unspecified ear; F32.9 Major depressive disorder, single episode, unspecified; F43.21 Adjustment disorder with depressed mood; Z79.82 Long term (current) use of aspirin; Z86.73 Personal history of transient ischemic attack (TIA), and cerebral infarction without residual deficits; Z97.4 Presence of external hearing-aid; Z85.828 Personal history of other malignant neoplasm of skin; Z79.84 Long term (current) use of oral hypoglycemic drugs
CPT/HCPCS: 36415; 80048; 85014; 85018; 85049; A9270-GY; C1776; G8978-GP-CJ; G8979-GP-CI; J0690; J1100; J1170; J1885; J2250; J2405; J2704; J2765; J2795; J3010